=== PATIENT | female | born 1930 | race Hispanic/Latino ===

== ENCOUNTER 2017-03-07 12:28 | Emergency (ER) | payer MEDICARE ==
[2017-03-07 12:28] VITALS: BMI 24.7
--- NOTE | 2017-03-07 14:21 | C.PDOC ---
History Of Present Illness 87 year old female with history of CHF, HTN, DM, spinal issues, skin cancer, with pacemaker who complains of 4 day history of productive cough, chest congestion, wheezing, sore throat. Daughter reports that patient has been feeling more tired, falling asleep, disoriented, which is not typical for the patient. Patient reportedly improved when she ate and drank something on Tuesday. She has had similar symptoms in the past when she was found to be dehydrated and possibly had pneumonia. She was reportedly slightly febrile to 99.5 on Tuesday. Patient also states that she feels weak all over with overall decreased energy. She is able to move all her extremities and has been able to get to the bathroom with her walker. She received the flu shot and has had the pneumonia shot in the past. PMH: CHF, HTN, DM, spinal issues, skin cancer, bleeding ulcer PSH: mole removal, pacemaker social hx: no history of smoking, alcohol or drugs. lives at home with clark Fox who is there for 5-6 hours daily. Daughter comes by to visit her on the weekends. family hx: history of DM. Strong hx of [place] - two of her brothers at [place] at ages 45 and 50 Meds: Lasix, Metoprolol, Glipizide, Plavix, Loratidine, Amlodipine, Famotidine, Zolpidem, Atorvastatin, Oxycodone/Apap, Glucosamine chondroitin, Vit B12, Vit B6 , folic acid. Allergies: ASA, Cipro Time Seen by Provider: 03/07/17 13:23 Chief Complaint (Nursing): Weakness/Neurological Deficit Past Medical History Vital Signs: Last Vital Signs Temp 98.1 F 03/07/17 15:49 Pulse 60 03/07/17 14:15 Resp 22 03/07/17 14:15 BP 157/66 H 03/07/17 12:40 Pulse Ox 94 L 03/07/17 12:40 - Medical History PMH: Arthritis, Bronchitis, Diverticulitis, Gastritis, HTN, Hypercholesterolemia , Osteoporosis, Pneumonia (2011), Chronic Kidney Disease (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, but back to normal) Surgical History: Pacemaker - [facility] Procedures EXERCISE TREATMENT OF MUSCULOSK WHOLE USING ASSIST EQUIPMENT (02/06/15) GAIT TRAINING/AMBULAT TREATMENT USING ASSIST EQUIPMENT (02/06/15) HOME MANAGEMENT TREATMENT USING ASSIST EQUIPMENT (08/26/15) INITIAL INSERT TRANS LEADS INTO [employer] (10/22/13) INITIAL INSERTION OF DUAL-CHAMBER DEVICE (10/22/13) THERAPEUTIC EXERCISE TREATMENT OF MUSCULOSK LOW BACK/LE (08/26/15) Family History: States: Unknown Family Hx - Social History Hx Tobacco Use: No Hx Alcohol Use: No Hx Substance Use: No - Immunization History Hx Tetanus Toxoid Vaccination: No Hx Influenza Vaccination: Yes Hx Pneumococcal Vaccination: No Review Of Systems Constitutional: Positive for: Fever. Negative for: Chills ENT: Positive for: Throat Pain Cardiovascular: Negative for: Chest Pain, Palpitations Respiratory: Positive for: Cough, Wheezing Gastrointestinal: Positive for: Nausea. Negative for: Vomiting, Abdominal Pain , Diarrhea Genitourinary: Negative for: Dysuria, Frequency Neurological: Positive for: Weakness. Negative for: Numbness, Change in Speech Physical Exam - Physical Exam Appears: Non-toxic, No Acute Distress Skin: Normal Color Head: Atraumatic, Normacephalic Oral Mucosa: Moist Lips: Normal Appearing Teeth: Normal Dentition Chest: Symmetrical Cardiovascular: Rhythm Regular Respiratory: Decreased Breath Sounds (on right ), No Rhonchi, No Wheezing Gastrointestinal/Abdominal: Bowel Sounds, Soft, No Tenderness Rectal: Deferred Back: No CVA Tenderness Extremity: Normal ROM, No Tenderness, No Pedal Edema ED Course And Treatment - Laboratory Results Result Diagrams: 03/07/17 14:48 03/07/17 14:48 Medical Decision Making Medical Decision Making: Patient seen by Dr. Merchant in the ED. request patient be discharged. Patient with positive Nitrites. Will treat with Macrobid. Disposition Discussed With : Spencer Merchant Counseled Patient/Family Regarding: Studies Performed, Diagnosis, Need For Followup, Rx Given - Disposition Referrals: Spencer Merchant MD [Staff Provider] - Disposition: HOME/ ROUTINE Disposition Time: 17:04 Condition: STABLE Prescriptions: Nitrofurantoin Macrocrystals [Macrobid] 1 cap PO BID #14 cap Instructions: Urinary Tract Infection in Women (ED) Forms: [facility] (Persian), General Discharge Instructions - POA Present On Arrival: None - Clinical Impression Clinical Impression: UTI (urinary tract infection)
--- NOTE | 2017-03-07 14:28 | RAD ---
PROCEDURE: CHEST RADIOGRAPH, 1 VIEW HISTORY: SOB COMPARISON: 10/27/2015 FINDINGS: LUNGS: Clear. PLEURA: No pneumothorax or pleural fluid seen. CARDIOVASCULAR: Normal heart size. Permanent pacemaker. No congestive change. OSSEOUS STRUCTURES: Bilateral glenohumeral osteoarthritis VISUALIZED UPPER ABDOMEN: Normal. OTHER FINDINGS: None. IMPRESSION: No active disease.
[2017-03-07 15:02] LABS: BASO % 0.3 % (0.0-2.0); HEMOGLOBIN 12.4 g/dL (11.0-16.0); LYMPH # 2.2 K/uL (1.0-4.3); LYMPH % 38.4 % (20.0-40.0); MEAN CORPUSCULAR HEMOGLOBIN 32.1 pg (27.0-31.0); MEAN CORPUSCULAR HGB CONC 34.4 g/dL (33.0-37.0); MONO # 1.4 K/uL (0.0-0.8); MONO % 23.9 % (0.0-10.0); NEUT # 2.2 K/uL (1.8-7.0); NEUT % 37.4 % (50.0-75.0); NRBC % 0.1 % (0.0-2.0); RBC 3.86 Mil/uL (3.80-5.20); RED CELL DISTRIBUTION WIDTH 13.6 % (11.5-14.5); WHITE BLOOD COUNT 5.8 K/uL (4.8-10.8)
[2017-03-07 15:05] LABS: MEAN CELL VOLUME 93.5 fL (81.0-99.0); PLATELET COUNT 121 K/uL (130-400)
[2017-03-07 15:14] LABS: ALB/GLOB RATIO 1.1 (1.0-2.1); ALBUMIN 3.5 g/dL (3.5-5.0); ALT/SGPT 44 U/L (9-52); AST/SGOT 57 U/L (14-36); BLOOD UREA NITROGEN 19 mg/dL (7-17); CALCIUM 8.4 mg/dl (8.6-10.4); GFR AFRICAN-AMERICAN > 60; GFR NON-AFRICAN AMERICAN > 60
[2017-03-07 15:26] LABS: B-TYPE NATRIURETIC PEPTIDE 670 pg/mL (0-900)
[2017-03-07 15:52] LABS: BANDS 11 % (0-2); LYMPHOCYTE 29 % (20-40); MONOCYTE 14 % (0-10); NEUTROPHIL 46 % (50-75); PLATELET ESTIMATE NORMAL (NORMAL); TOTAL CELLS COUNTED 100
[2017-03-07 16:52] LABS: URINE BILIRUBIN NEGATIVE (NEGATIVE); URINE BLOOD MODERATE (NEGATIVE); URINE CLARITY Turbid (Clear); URINE COLOR STRAW (YELLOW); URINE GLUCOSE (UA) NEGATIVE (Normal)
[2017-03-07 16:53] LABS: URINE LEUKOCYTE ESTERASE MODERATE Leu/uL (Negative); URINE NITRATE POSITIVE (NEGATIVE); URINE PROTEIN 100 mg/dL (NEGATIVE); URINE UROBILINOGEN 0.2 mg/dL (0.2-1.0)
[2017-03-07 16:54] LABS: URINE BACTERIA MANY (<OCC)
[2017-03-07 16:55] LABS: SQUAMOUS EPITHIAL 20 /hpf (0-5)
[2017-03-07 18:20] VITALS: BP 154/65; PULSE 66; RESP 20; TEMP 97.9; O2SAT 96
== END 2017-03-07 18:17 | disposition home or self-care (01) ==
LOC: C.ER 12:28
DX: N39.0 Urinary tract infection, site not specified (principal); I50.9 Heart failure, unspecified; E78.00 Pure hypercholesterolemia, unspecified; I10 Essential (primary) hypertension; E11.9 Type 2 diabetes mellitus without complications

== ENCOUNTER 2017-03-11 11:35 | Inpatient (IN) | payer MEDICARE ==
[2017-03-11 11:36] VITALS: BMI 24.7
[2017-03-11] MEDS ORDERED: Sodium Chloride 0.9% 500 ML IV STA (12:20)
[2017-03-11] MEDS ORDERED: Sodium Chloride 0.9% 500 ML IV ONE (12:36)
[2017-03-11 12:40] LABS: VENOUS BLOOD GAS BASE EXCESS 4.7 mmol/L (0.0-2.0); VENOUS BLOOD GAS PCO2 42 mmHg (40-60); VENOUS BLOOD GAS PO2 36 mm/Hg (30-55); VENOUS BLOOD PH 7.45 (7.32-7.43)
[2017-03-11 12:50] LABS: LYMPH # 2.2 K/uL (1.0-4.3); LYMPH % 38.3 % (20.0-40.0); MEAN CORPUSCULAR HEMOGLOBIN 32.5 pg (27.0-31.0); NEUT # 2.6 K/uL (1.8-7.0); WHITE BLOOD COUNT 5.7 K/uL (4.8-10.8)
[2017-03-11 12:55] LABS: INR 1.1
[2017-03-11 12:59] LABS: ALB/GLOB RATIO 1.2 (1.0-2.1); ALBUMIN 3.8 g/dL (3.5-5.0); ALT/SGPT 33 U/L (9-52); AMYLASE 102 U/L (30-110); AST/SGOT 42 U/L (14-36); BLOOD UREA NITROGEN 11 mg/dL (7-17); CALCIUM 8.7 mg/dl (8.6-10.4); GFR AFRICAN-AMERICAN > 60; GFR NON-AFRICAN AMERICAN > 60; LIPASE 502 U/L (23-300); MAGNESIUM 1.8 mg/dL (1.6-2.3)
[2017-03-11 13:03] LABS: BASO % 0.3 % (0.0-2.0); EOS % 0.1 % (0.0-4.0); MEAN CORPUSCULAR HGB CONC 36.2 g/dL (33.0-37.0); MEAN PLATELET VOLUME 9.1 fL (7.2-11.7); MONO # 0.9 K/uL (0.0-0.8); MONO % 15.3 % (0.0-10.0); NRBC % 0.2 % (0.0-2.0); RBC 4.26 Mil/uL (3.80-5.20); RED CELL DISTRIBUTION WIDTH 13.3 % (11.5-14.5)
[2017-03-11 13:05] LABS: HEMOGLOBIN 13.9 g/dL (11.0-16.0)
[2017-03-11 13:06] LABS: MEAN CELL VOLUME 90.2 fL (81.0-99.0)
[2017-03-11 13:08] LABS: CK-MB 1.23 ng/mL (0.0-3.38)
[2017-03-11 13:19] LABS: URINE BILIRUBIN NEGATIVE (NEGATIVE); URINE BLOOD NEGATIVE (NEGATIVE); URINE CLARITY Clear (Clear); URINE COLOR Yellow (YELLOW); URINE GLUCOSE (UA) NORMAL (Normal); URINE LEUKOCYTE ESTERASE NEG Leu/uL (Negative); URINE NITRATE NEGATIVE (NEGATIVE); URINE PROTEIN 2+ mg/dL (NEGATIVE); URINE UROBILINOGEN NORMAL mg/dL (0.2-1.0)
--- NOTE | 2017-03-11 13:26 | C.PDOC ---
History Of Present Illness 87 year old female brought to ED by respiratory tech for evaluation of lethargy, confusion, decreased PO intake, and cough with yellow phlegm for the past 2 weeks. Escrow Processor notes that pt had multiple episodes of vomiting yesterday. Escrow Processor states that pt was recently seen here for UTI, and was discharged home with unknown antibiotics which pt has been taking without improvement. Notes that symptoms have worsened which prompted ED visit. Otherwise, denies diarrhea, or any other associated symptoms at this time. Chief Complaint (Nursing): Weakness/Neurological Deficit History Per: Family History/Exam Limitations: no limitations Onset/Duration Of Symptoms: Days Current Symptoms Are (Timing): Still Present Recent travel outside of the [place]: No Additional History Per: Family Past Medical History Reviewed: Historical Data, Nursing Documentation, Vital Signs Vital Signs: Last Vital Signs Temp 98.1 F 03/11/17 16:00 Pulse 60 03/11/17 16:00 Resp 18 03/11/17 16:00 BP 157/71 H 03/11/17 16:00 Pulse Ox 98 03/11/17 16:00 - Medical History PMH: Arthritis, Bronchitis, Diverticulitis, Gastritis, HTN, Hypercholesterolemia , Osteoporosis, Pneumonia (2011), Chronic Kidney Disease (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, but back to normal) Surgical History: Pacemaker - [facility] Procedures EXERCISE TREATMENT OF MUSCULOSK WHOLE USING ASSIST EQUIPMENT (02/06/15) GAIT TRAINING/AMBULAT TREATMENT USING ASSIST EQUIPMENT (02/06/15) HOME MANAGEMENT TREATMENT USING ASSIST EQUIPMENT (08/26/15) INITIAL INSERT TRANS LEADS INTO [employer]ENTRICLE (10/22/13) INITIAL INSERTION OF DUAL-CHAMBER DEVICE (10/22/13) THERAPEUTIC EXERCISE TREATMENT OF MUSCULOSK LOW BACK/LE (08/26/15) Family History: States: Unknown Family Hx - Social History Hx Tobacco Use: No Hx Alcohol Use: No Hx Substance Use: No - Immunization History Hx Tetanus Toxoid Vaccination: No Hx Influenza Vaccination: Yes Hx Pneumococcal Vaccination: No Review Of Systems Except As Marked, All Systems Reviewed And Found Negative. Constitutional: Positive for: Weakness Cardiovascular: Negative for: Chest Pain Respiratory: Positive for: Cough, Sputum Gastrointestinal: Positive for: Vomiting Physical Exam - Physical Exam Appears: Non-toxic, No Acute Distress Skin: Normal Color, Warm, Dry Head: Atraumatic, Normacephalic Eye(s): bilateral: Normal Inspection, EOMI Oral Mucosa: Moist Neck: Normal ROM, Supple Cardiovascular: Rhythm Regular, No Murmur Respiratory: No Accessory Muscle Use, No Rales, No Rhonchi, Wheezing ( bilaterally) Gastrointestinal/Abdominal: Soft, No Tenderness Extremity: Normal ROM, No Deformity Neurological/Psych: Oriented x3, Normal Speech ED Course And Treatment - Laboratory Results Result Diagrams: 03/11/17 12:40 03/11/17 12:40 O2 Sat by Pulse Oximetry: 93 - Other Rad CXR X-Ray: Viewed By Me, Read By Radiologist Interpretation: Accession No. : [id number]. Patient Name / ID : ALYSSA Harper / [id number]. Exam Date : 03/11/2017 13:27:17 ( Approved ). Study Comment : Sex / Age : F / [id number]. Creator : Steffanie Aden MD. Dictator : Steffanie Aden MD. Associate Professor Of English : Medical Art Therapist : Steffanie Aden MD. Approver2 : Report Date : 03/11/2017 14:59:45. My Comment : . HISTORY: cough/fever. COMPARISON: Comparison is made with 03/07/2017. FINDINGS: LUNGS : No significant interval change in the lungs noted since the previous exam. Small bibasilar atelectasis. PLEURA: No significant pleural effusion identified, no pneumothorax apparent. CARDIOVASCULAR: Left-sided pacemaker is again seen in place P. OSSEOUS STRUCTURES: No significant abnormalities. VISUALIZED UPPER ABDOMEN: Normal. OTHER FINDINGS: None. IMPRESSION: No significant interval change noted since the previous exam. Progress Note: Blood work, urinalysis, influenza AB, CXR ordered and reviewed. Pt was given IV fluids. Despite negative CXR report. LLL looks hazy and still suspecious for developing pneumonia. Patient found to have hypokalemia and hyponatremia that make is suspecious for atypical pneumonia. Rocephin and Zithro started. Case d/w who accepted case for an admission. Disposition - Disposition Disposition: HOSPITALIZED Disposition Time: 15:00 Condition: FAIR - Clinical Impression Clinical Impression: Hypokalemia, Hyponatremia, Pneumonia - PA / SEWER TAPPER / Resident Statement MD/DO has reviewed & agrees with the documentation as recorded. - Scribe Statement The provider has reviewed the documentation as recorded by the Scribe Haley Hollins All medical record entries made by the Scribe were at my direction and personally dictated by me. I have reviewed the chart and agree that the record accurately reflects my personal performance of the history, physical exam, medical decision making, and the department course for this patient. I have also personally directed, reviewed, and agree with the discharge instructions and disposition. Decision To Admit - Pt Status Changed To: Hospital Disposition Of: Inpatient - Admit Certification Admit to Inpatient:: After my assessment, the patient will require hospitalization for at least two midnights. This is because of the severity of symptoms shown, intensity of services needed, and/or the medical risk in this patient being treated as an outpatient. - InPatient: Physician Admission Certification: I certify that this patient requires 2 or more midnights of care for the following reason:: Patient will need more than 2 days of IV antibiotics. - . Bed Request Type: Regular Patient Diagnosis: Hypokalemia, Hyponatremia, Pneumonia
[2017-03-11] MEDS ORDERED: Potassium Chloride 20 mEq/15 ml LIQ UD PO STA (14:29)
[2017-03-11] MEDS ORDERED: Albuterol-Ipratrop 3 mg / 0.5 (3 ml) UD IH STA (14:59)
[2017-03-11] MEDS ORDERED: Azithromycin 500 MG in Sodium Chloride 0.9% 250 ML IVPB ONE (15:00)
--- NOTE | 2017-03-11 15:01 | RAD ---
HISTORY: cough/fever COMPARISON: Comparison is made with 03/07/2017 FINDINGS: LUNGS: No significant interval change in the lungs noted since the previous exam. Small bibasilar atelectasis. PLEURA: No significant pleural effusion identified, no pneumothorax apparent. CARDIOVASCULAR: Left-sided pacemaker is again seen in place P OSSEOUS STRUCTURES: No significant abnormalities. VISUALIZED UPPER ABDOMEN: Normal. OTHER FINDINGS: None. IMPRESSION: No significant interval change noted since the previous exam.
[2017-03-11] MEDS ORDERED: Potassium Chloride 20 mEq/15 ml LIQ UD ONE (15:08)
[2017-03-11] MEDS: Sodium Chloride 0.9% 1,000 ML IV SCH (15:44)
[2017-03-11] MEDS ORDERED: Albuterol-Ipratrop 3 mg / 0.5 (3 ml) UD ONE (15:46)
[2017-03-11] MEDS ORDERED: Sodium Chloride 0.9% 1,000 ML ONE (15:47)
[2017-03-11] MEDS: Enoxaparin 40 mg Syringe SC SCH (15:54)
[2017-03-11] MEDS: (Novolog) Insulin Aspart, Recombinant 100 u/ml 10 ml vial SC SCH ×2 (16:51→21:18)
[2017-03-11] MEDS: Oxycodone/Acetaminophen 5/325 mg Tab PO SCH (21:20)
[2017-03-11] MEDS ORDERED: Dextrose 50% SYRINGE Inj (50 ml) IV STA (22:00)
--- NOTE | 2017-03-11 23:34 | CP.PCM.HP ---
History of Present Illness - History of Present Illness History of Present Illness: 87 years old female brought to the ED by her manager video games because of increasing lethargy, nausea, vomiting since last night. She was seen at the ED 2 days ago for a productive cough and mild hyponatremia, was found to have an UTI and was discharged home on Macrobid. Today her serum Na+:121 K+: 3.0 Amylase: 102 and Lipase: 502. She is known to have a hypertension, a non-insulin dependent diabetes mellitus, a hyperlipidemia, severe osteoarthritis, a permanent pacemaker. Present on Admission - Present on Admission Any Indicators Present on Admission: No Review of Systems - Constitutional Constitutional: Anorexia, Lethargy, Weakness - Respiratory Respiratory: Cough, Chest Congestion - Gastrointestinal Gastrointestinal: Nausea, Vomiting Past Patient History - Infectious Disease Hx of Infectious Diseases: None - Tetanus Immunizations Tetanus Immunization: Unknown - Past Medical History & Family History Past Medical History?: Yes - Past Social History Smoking Status: Never Smoked Alcohol: None Drugs: Denies Home Situation {Lives}: Alone Domestic Violence: Negative - CARDIAC Hx Hypercholesterolemia: Yes Hx Hypertension: Yes Hx Pacemaker: Yes - PULMONARY Hx Bronchitis: Yes Hx Pneumonia: Yes (2011) - NEUROLOGICAL Hx Paralysis: No - HEENT Hx HEENT Problems: Yes Other/Comment: SCALP SURGERY FOR MALIGNANCY - RENAL Hx Chronic Kidney Disease: Yes (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, but back to normal) - ENDOCRINE/METABOLIC Hx Endocrine Disorders: Yes Hx Diabetes Mellitus Type 2: Yes - HEMATOLOGICAL/ONCOLOGICAL Hx Blood Transfusions: No Hx Blood Transfusion Reaction: No - INTEGUMENTARY Hx Dermatological Problems: Yes Hx Basil Cell: Yes ((?)) Other/Comment: top of head cancer - MUSCULOSKELETAL/RHEUMATOLOGICAL Hx Arthritis: Yes Hx Falls: Yes Hx Osteoporosis: Yes - GASTROINTESTINAL Hx Diverticulitis: Yes Hx Gastritis: Yes - GENITOURINARY/GYNECOLOGICAL Hx Genitourinary Disorders: Yes Hx Urinary Tract Infection: Yes - PSYCHIATRIC Hx Substance Use: No - SURGICAL HISTORY Hx Surgeries: Yes (Cataract extraction. 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.) Hx Cataract Extraction: Yes Hx Hysterectomy: Yes (PARTIAL) Other/Comment: BACK STIMULATOR, PACEMAKER - ANESTHESIA Hx Anesthesia Reactions: Yes Hx Malignant Hyperthermia: No Meds Allergies/Adverse Reactions: Allergies Allergy/AdvReac Type Severity Reaction Status Date / Time ciprofloxacin [From Cipro] Allergy Severe Verified 03/07/17 12:47 ciprofloxacin HCl Allergy Severe Verified 03/07/17 12:47 [From Cipro] Physical Exam - Constitutional Appears: Chronically Ill - Head Exam Head Exam: NORMAL INSPECTION - Eye Exam Eye Exam: Normal appearance - ENT Exam ENT Exam: Normal Exam - Neck Exam Neck exam: Positive for: Normal Inspection - Respiratory Exam Respiratory Exam: Rhonchi, Wheezes Additional comments: Some rhonchi bilaterally - Cardiovascular Exam Cardiovascular Exam: REGULAR RHYTHM, Systolic Murmur - GI/Abdominal Exam GI & Abdominal Exam: Normal Bowel Sounds, Soft - Rectal Exam Rectal Exam: Deferred - Extremities Exam Extremities exam: Positive for: normal inspection - Back Exam Back exam: NORMAL INSPECTION - Neurological Exam Neurological exam: Alert, Oriented x3 - Psychiatric Exam Psychiatric exam: Anxious - Skin Skin Exam: Dry, Intact, Normal Color, Warm Results - Vital Signs Recent Vital Signs: Last Vital Signs Temp 98.1 F 03/11/17 18:15 Pulse 60 03/11/17 18:15 Resp 20 03/11/17 18:15 BP 156/71 H 03/11/17 18:15 Pulse Ox 94 L 03/11/17 18:15 - Labs Result Diagrams: 03/11/17 12:40 03/11/17 12:40 Labs: Laboratory Results - last 24 hr 03/11/17 03/11/17 03/11/17 12:20 12:36 12:40 WBC 5.7 RBC 4.26 Hgb 13.9 Hct 38.6 MCV 90.2 D MCH 32.5 H MCHC 36.2 RDW 13.3 Plt Count 130 MPV 9.1 Neut % (Auto) 46.0 L Lymph % (Auto) 38.3 [place] % (Auto) 15.3 H Eos % (Auto) 0.1 Baso % (Auto) 0.3 Neut # (Auto) 2.6 Lymph # (Auto) 2.2 [place] # (Auto) 0.9 H Eos # (Auto) 0.0 Baso # (Auto) 0.0 PT INR APTT pO2 36 VBG pH 7.45 H VBG pCO2 42 VBG HCO3 27.9 VBG Total CO2 30.5 H VBG O2 Sat (Calc) 71.1 H VBG Base Excess 4.7 H VBG Potassium 3.1 L Sodium 123.0 L Chloride 89.0 L Glucose 112 H Lactate 1.4 Potassium Carbon Dioxide Anion Gap BUN Creatinine Est GFR ( Amer) Est GFR (Non-Af Amer) POC Glucose (mg/dL) Random Glucose Calcium Magnesium Total Bilirubin AST ALT Alkaline Phosphatase Total Creatine Kinase CK-MB (Mass) Troponin I Total Protein Albumin Globulin Albumin/Globulin Ratio Amylase Lipase Venous Blood Potassium 3.1 L Urine Color Urine Clarity Urine pH Ur Specific [place] Urine Protein Urine Glucose (UA) Urine Ketones Urine Blood Urine Nitrate Urine Bilirubin Urine Urobilinogen Ur Leukocyte Esterase Urine WBC (Auto) Urine RBC (Auto) Influenza Typ A,B (EIA) Negative for flu a/b 03/11/17 03/11/17 03/11/17 12:40 12:40 13:13 WBC RBC Hgb Hct MCV MCH MCHC RDW Plt Count MPV Neut % (Auto) Lymph % (Auto) [place] % (Auto) Eos % (Auto) Baso % (Auto) Neut # (Auto) Lymph # (Auto) [place] # (Auto) Eos # (Auto) Baso # (Auto) PT 12.0 INR 1.1 APTT 29 pO2 VBG pH VBG pCO2 VBG HCO3 VBG Total CO2 VBG O2 Sat (Calc) VBG Base Excess VBG Potassium Sodium 121 L Chloride 83 L Glucose Lactate Potassium 3.0 L Carbon Dioxide 27 Anion Gap 14 BUN 11 Creatinine 0.6 L Est GFR ( Amer) > 60 Est GFR (Non-Af Amer) > 60 POC Glucose (mg/dL) Random Glucose 106 H Calcium 8.7 Magnesium 1.8 Total Bilirubin 0.8 AST 42 H D ALT 33 Alkaline Phosphatase 88 Total Creatine Kinase 54 CK-MB (Mass) 1.23 Troponin I < 0.0120 Total Protein 7.1 Albumin 3.8 Globulin 3.3 Albumin/Globulin Ratio 1.2 Amylase 102 Lipase 502 H Venous Blood Potassium Urine Color Yellow Urine Clarity Clear Urine pH 7.0 Ur Specific [place] 1.008 Urine Protein 2+ H Urine Glucose (UA) Normal Urine Ketones Negative Urine Blood Negative Urine Nitrate Negative Urine Bilirubin Negative Urine Urobilinogen Normal Ur Leukocyte Esterase Neg Urine WBC (Auto) < 1 Urine RBC (Auto) < 1 Influenza Typ A,B (EIA) 03/11/17 03/11/17 03/11/17 16:47 21:46 21:48 WBC RBC Hgb Hct MCV MCH MCHC RDW Plt Count MPV Neut % (Auto) Lymph % (Auto) [place] % (Auto) Eos % (Auto) Baso % (Auto) Neut # (Auto) Lymph # (Auto) [place] # (Auto) Eos # (Auto) Baso # (Auto) PT INR APTT pO2 VBG pH VBG pCO2 VBG HCO3 VBG Total CO2 VBG O2 Sat (Calc) VBG Base Excess VBG Potassium Sodium Chloride Glucose Lactate Potassium Carbon Dioxide Anion Gap BUN Creatinine Est GFR ( Amer) Est GFR (Non-Af Amer) POC Glucose (mg/dL) 106 69 69 Random Glucose Calcium Magnesium Total Bilirubin AST ALT Alkaline Phosphatase Total Creatine Kinase CK-MB (Mass) Troponin I Total Protein Albumin Globulin Albumin/Globulin Ratio Amylase Lipase Venous Blood Potassium Urine Color Urine Clarity Urine pH Ur Specific [place] Urine Protein Urine Glucose (UA) Urine Ketones Urine Blood Urine Nitrate Urine Bilirubin Urine Urobilinogen Ur Leukocyte Esterase Urine WBC (Auto) Urine RBC (Auto) Influenza Typ A,B (EIA) 03/11/17 22:16 WBC RBC Hgb Hct MCV MCH MCHC RDW Plt Count MPV Neut % (Auto) Lymph % (Auto) [place] % (Auto) Eos % (Auto) Baso % (Auto) Neut # (Auto) Lymph # (Auto) [place] # (Auto) Eos # (Auto) Baso # (Auto) PT INR APTT pO2 VBG pH VBG pCO2 VBG HCO3 VBG Total CO2 VBG O2 Sat (Calc) VBG Base Excess VBG Potassium Sodium Chloride Glucose Lactate Potassium Carbon Dioxide Anion Gap BUN Creatinine Est GFR ( Amer) Est GFR (Non-Af Amer) POC Glucose (mg/dL) 216 H Random Glucose Calcium Magnesium Total Bilirubin AST ALT Alkaline Phosphatase Total Creatine Kinase CK-MB (Mass) Troponin I Total Protein Albumin Globulin Albumin/Globulin Ratio Amylase Lipase Venous Blood Potassium Urine Color Urine Clarity Urine pH Ur Specific [place] Urine Protein Urine Glucose (UA) Urine Ketones Urine Blood Urine Nitrate Urine Bilirubin Urine Urobilinogen Ur Leukocyte Esterase Urine WBC (Auto) Urine RBC (Auto) Influenza Typ A,B (EIA) Assessment & Plan (1) Hyponatremia Assessment and Plan: Probably from vomiting and dehydration. To continue IV NS. Status: Acute (2) Hypokalemia Assessment and Plan: Replace with KCl. Status: Acute (3) Acute bronchitis Status: Acute (4) Acute pancreatitis Assessment and Plan: Probably viral in origin. To order an abdominal US. Status: Acute Decision To Admit - Pt Status Changed To: Hospital Disposition Of: Inpatient - Admit Certification Admit to Inpatient:: After my assessment, the patient will require hospitalization for at least two midnights. This is because of the severity of symptoms shown, intensity of services needed, and/or the medical risk in this patient being treated as an outpatient. - InPatient: Physician Admission Certification:: After my assessments, the patient requires hospitalization for at least two midnights. - . Bed Request Type: Regular Admitting Physician: Spencer Merchant
[2017-03-12 01:16] LABS: URIC ACID 2.4 mg/dL (2.2-7.5)
[2017-03-12 02:39] LABS: OSMOLALITY,URINE 257 mosm/kg (300-1000)
[2017-03-12] MEDS: Enoxaparin 40 mg Syringe SC SCH ×2 (03:15→10:52)
[2017-03-12] MEDS: (Novolog) Insulin Aspart, Recombinant 100 u/ml 10 ml vial SC SCH ×4 (07:54→21:57)
[2017-03-12] MEDS: Sodium Chloride 0.9% 1,000 ML IV SCH (07:54)
[2017-03-12 08:52] LABS: ALB/GLOB RATIO 1.2 (1.0-2.1); ALBUMIN 3.5 g/dL (3.5-5.0); ALT/SGPT 35 U/L (9-52); AMYLASE 101 U/L (30-110); AST/SGOT 40 U/L (14-36); BLOOD UREA NITROGEN 10 mg/dL (7-17); CALCIUM 8.1 mg/dl (8.6-10.4); GFR AFRICAN-AMERICAN > 60; GFR NON-AFRICAN AMERICAN > 60; LIPASE 466 U/L (23-300)
[2017-03-12] MEDS ORDERED: Azithromycin 500 MG in Sodium Chloride 0.9% 250 ML IVPB SCH (10:00)
[2017-03-12] MEDS: GlipiZIDE 2.5 mg Tab PO SCH (10:53)
[2017-03-12 13:50] VITALS: RESP 20
--- NOTE | 2017-03-12 14:08 | CP.PCM.CON ---
History of Present Illness - History of Present Illness History of Present Illness: pt is seen and examined, full consult is dictated #[id number] 1. hyponatremia sec to hypotonic hypovolemic hyponatremia 2. hypoklaemia 3. URi/ acute bronchitis 4. HTN 6. t2 DM c/w ivf NS at 60-70 ml/hr will k dur 40 meq po x 1 now check bmp, mg in am Past Patient History - Infectious Disease Hx of Infectious Diseases: None - Tetanus Immunizations Tetanus Immunization: Unknown - Past Medical History & Family History Past Medical History?: Yes - Past Social History Smoking Status: Never Smoked Alcohol: None Drugs: Denies Home Situation {Lives}: Alone Domestic Violence: Negative - CARDIAC Hx Hypercholesterolemia: Yes Hx Hypertension: Yes Hx Pacemaker: Yes - PULMONARY Hx Bronchitis: Yes Hx Pneumonia: Yes (2011) - NEUROLOGICAL Hx Paralysis: No - HEENT Hx HEENT Problems: Yes Other/Comment: SCALP SURGERY FOR MALIGNANCY - RENAL Hx Chronic Kidney Disease: Yes (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, but back to normal) - ENDOCRINE/METABOLIC Hx Endocrine Disorders: Yes Hx Diabetes Mellitus Type 2: Yes - HEMATOLOGICAL/ONCOLOGICAL Hx Blood Transfusions: No Hx Blood Transfusion Reaction: No - INTEGUMENTARY Hx Dermatological Problems: Yes Hx Basil Cell: Yes ((?)) Other/Comment: top of head cancer - MUSCULOSKELETAL/RHEUMATOLOGICAL Hx Arthritis: Yes Hx Falls: Yes Hx Osteoporosis: Yes - GASTROINTESTINAL Hx Diverticulitis: Yes Hx Gastritis: Yes - GENITOURINARY/GYNECOLOGICAL Hx Genitourinary Disorders: Yes Hx Urinary Tract Infection: Yes - PSYCHIATRIC Hx Substance Use: No - SURGICAL HISTORY Hx Surgeries: Yes (Cataract extraction. 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.) Hx Cataract Extraction: Yes Hx Hysterectomy: Yes (PARTIAL) Other/Comment: BACK STIMULATOR, PACEMAKER - ANESTHESIA Hx Anesthesia Reactions: Yes Hx Malignant Hyperthermia: No Meds Allergies/Adverse Reactions: Allergies Allergy/AdvReac Type Severity Reaction Status Date / Time ciprofloxacin [From Cipro] Allergy Severe Verified 03/07/17 12:47 ciprofloxacin HCl Allergy Severe Verified 03/07/17 12:47 [From Cipro] - Medications Medications: Current Medications Amlodipine Besylate (Norvasc) 5 mg PO DAILY [facility] Last Admin: 03/12/17 10:53 Dose: 5 mg Azithromycin (Zithromax) 500 mg PO DAILY [facility] Clopidogrel Bisulfate (Plavix) 75 mg PO DAILY [facility] Last Admin: 03/12/17 10:53 Dose: 75 mg Enoxaparin Sodium (Lovenox) 40 mg SC DAILY [facility] Last Admin: 03/12/17 10:52 Dose: 40 mg Famotidine (Pepcid) 20 mg PO DAILY [facility] Last Admin: 03/12/17 10:53 Dose: 20 mg Glipizide (Glucotrol) 2.5 mg PO DAILY [facility] Last Admin: 03/12/17 10:53 Dose: 2.5 mg Sodium Chloride (Sodium Chloride 0.9%) 1,000 mls @ 60 mls/hr IV .[id number] [facility] Last Admin: 03/12/17 07:54 Dose: Not Given Insulin Aspart (Novolog) 0 unit SC [facility] ON LICENSE OF [facility] PRN Reason: Protocol Last Admin: 03/12/17 11:39 Dose: Not Given Metoprolol Tartrate (Lopressor) 50 mg PO BID [facility] Last Admin: 03/12/17 10:53 Dose: 50 mg Ondansetron HCl (Zofran Inj) 4 mg IVP Q4H PRN PRN Reason: Nausea/Vomiting Oxycodone/Acetaminophen (Percocet 5/325 Mg Tab) 0.5 tab PO [facility] Stop: 03/14/17 22:01 Last Admin: 03/11/17 21:20 Dose: Not Given Zolpidem Tartrate (Ambien) 5 mg PO [facility] Last Admin: 03/11/17 21:20 Dose: 5 mg Results - Vital Signs Recent Vital Signs: Last Vital Signs Temp 97.9 F 03/12/17 07:00 Pulse 60 03/12/17 07:00 Resp 20 03/12/17 07:00 BP 151/76 H 03/12/17 07:00 Pulse Ox 96 03/12/17 07:00 - Labs Result Diagrams: 03/11/17 12:40 03/12/17 08:26 Labs: Laboratory Results - last 24 hr 03/11/17 03/11/17 03/11/17 16:47 21:46 21:48 Sodium Potassium Chloride Carbon Dioxide Anion Gap BUN Creatinine Est GFR ( Amer) Est GFR (Non-Af Amer) POC Glucose (mg/dL) 106 69 69 Random Glucose Serum Osmolality Uric Acid Calcium Total Bilirubin AST ALT Alkaline Phosphatase Total Protein Albumin Globulin Albumin/Globulin Ratio Amylase Lipase TSH 3rd Generation Cortisol AM Sample Urine Osmolality Ur Random Sodium 03/11/17 03/12/17 03/12/17 22:16 00:58 00:58 Sodium Potassium Chloride Carbon Dioxide Anion Gap BUN Creatinine Est GFR ( Amer) Est GFR (Non-Af Amer) POC Glucose (mg/dL) 216 H Random Glucose Serum Osmolality 267 L Uric Acid 2.4 Calcium Total Bilirubin AST ALT Alkaline Phosphatase Total Protein Albumin Globulin Albumin/Globulin Ratio Amylase Lipase TSH 3rd Generation 0.78 Cortisol AM Sample Urine Osmolality Ur Random Sodium 03/12/17 03/12/17 03/12/17 02:35 07:18 08:26 Sodium 127 L Potassium 3.0 L Chloride 91 L Carbon Dioxide 26 Anion Gap 13 BUN 10 Creatinine 0.5 L Est GFR ( Amer) > 60 Est GFR (Non-Af Amer) > 60 POC Glucose (mg/dL) 120 H Random Glucose 121 H Serum Osmolality Uric Acid Calcium 8.1 L Total Bilirubin 0.7 AST 40 H ALT 35 Alkaline Phosphatase 84 Total Protein 6.6 Albumin 3.5 Globulin 3.1 Albumin/Globulin Ratio 1.2 Amylase 101 Lipase 466 H TSH 3rd Generation Cortisol AM Sample Urine Osmolality 257 L Ur Random Sodium 62 03/12/17 08:26 Sodium Potassium Chloride Carbon Dioxide Anion Gap BUN Creatinine Est GFR ( Amer) Est GFR (Non-Af Amer) POC Glucose (mg/dL) Random Glucose Serum Osmolality Uric Acid Calcium Total Bilirubin AST ALT Alkaline Phosphatase Total Protein Albumin Globulin Albumin/Globulin Ratio Amylase Lipase TSH 3rd Generation Cortisol AM Sample 20.6 Urine Osmolality Ur Random Sodium
[2017-03-12] MEDS ORDERED: Potassium Chloride 20 mEq ER Tab PO STA (14:29)
--- NOTE | 2017-03-12 15:21 | US ---
HISTORY: Pancreatitis COMPARISON: Comparison made with CT scan of the abdomen and pelvis dated 11/29/2016 TECHNIQUE: Sonographic evaluation of the abdomen. FINDINGS: LIVER: Liver measures approximately 11.2 cm. Liver demonstrates smooth contour however increased -heterogeneous echogenicity suggesting fatty infiltration although other infiltrative hepatocellular disease process not excluded. . No mass. No intrahepatic bile duct dilatation. GALLBLADDER: No evidence of intraluminal gallbladder calculi. No pericholecystic fluid collections or sonographic Tate sign. COMMON BILE DUCT: CBD measures approximately 2.5 mm. No stones. No dilatation. PANCREAS: Pancreas is not visualized on this exam. RIGHT KIDNEY: Measures approximately 9.9 x 4.7 x 4.3cm. Slight increased echogenicity. No calculus, mass, or hydronephrosis. LEFT KIDNEY: Measures approximate 7.9 x 4.3 x 3.9cm. Slight increased echogenicity. No calculus, mass, or hydronephrosis. SPLEEN: Normal in size and contour. No mass. AORTA: No aneurysmal dilatation. IVC: Not visualized OTHER FINDINGS: None. IMPRESSION: Limited study due to large body habitus and bowel gas. Pancreas is not visualized on this exam. The liver is increased heterogeneous echotexture ; rule out fatty infiltration however other infiltrative hepatocellular disease process not excluded. Kidneys are also somewhat echogenic which could be secondary to large body habitus however ; correlation with renal function tests recommended to exclude underlying mild medical renal disease. .
--- NOTE | 2017-03-12 17:57 | CP.PCM.PN ---
Subjective - Date & Time of Evaluation Date of Evaluation: 03/12/17 Time of Evaluation: 17:55 - Subjective Subjective: Patient has no no abdominal pain, no nausea, but appetite remains poor, and she is still coughing. Serum lipase decreases a little, and her abdiminal US is unremarkable. She received K-Dur ordered by Dr Ha. To continue IVF Objective - Vital Signs/Intake and Output Vital Signs (last 24 hours): Temp Pulse Resp BP Pulse Ox 97.6 F 60 20 181/71 H 98 03/12/17 16:46 03/12/17 16:46 03/12/17 16:46 03/12/17 16:46 03/12/17 16:46 Intake and Output: 03/12/17 03/12/17 06:59 18:59 Intake Total 480 820 Balance 480 820 - Medications Medications: Current Medications Amlodipine Besylate (Norvasc) 5 mg PO DAILY [facility] Last Admin: 03/12/17 10:53 Dose: 5 mg Azithromycin (Zithromax) 500 mg PO DAILY [facility] Clopidogrel Bisulfate (Plavix) 75 mg PO DAILY [facility] Last Admin: 03/12/17 10:53 Dose: 75 mg Enoxaparin Sodium (Lovenox) 40 mg SC DAILY [facility] Last Admin: 03/12/17 10:52 Dose: 40 mg Famotidine (Pepcid) 20 mg PO DAILY [facility] Last Admin: 03/12/17 10:53 Dose: 20 mg Glipizide (Glucotrol) 2.5 mg PO DAILY [facility] Last Admin: 03/12/17 10:53 Dose: 2.5 mg Sodium Chloride (Sodium Chloride 0.9%) 1,000 mls @ 60 mls/hr IV .[id number] [facility] Last Admin: 03/12/17 07:54 Dose: Not Given Insulin Aspart (Novolog) 0 unit SC ACHS [facility] PRN Reason: Protocol Last Admin: 03/12/17 16:50 Dose: Not Given Metoprolol Tartrate (Lopressor) 50 mg PO BID [facility] Last Admin: 03/12/17 17:51 Dose: 50 mg Ondansetron HCl (Zofran Inj) 4 mg IVP Q4H PRN PRN Reason: Nausea/Vomiting Oxycodone/Acetaminophen (Percocet 5/325 Mg Tab) 0.5 tab PO [facility] Stop: 03/14/17 22:01 Last Admin: 03/11/17 21:20 Dose: Not Given Zolpidem Tartrate (Ambien) 5 mg PO [facility] Last Admin: 03/11/17 21:20 Dose: 5 mg - Labs Labs: 03/11/17 12:40 03/12/17 08:26 PT 12.0 SECONDS (9.7-12.2) 03/11/17 12:40 INR 1.1 03/11/17 12:40 APTT 29 SECONDS (21-34) 03/11/17 12:40 - Constitutional Appears: No Acute Distress, Chronically Ill - Head Exam Head Exam: NORMAL INSPECTION - Eye Exam Eye Exam: Normal appearance - ENT Exam ENT Exam: Normal Exam - Neck Exam Neck Exam: Normal Inspection - Respiratory Exam Respiratory Exam: Rhonchi Additional comments: Few rhonchi bibasilarly. - Cardiovascular Exam Cardiovascular Exam: REGULAR RHYTHM, Murmur - GI/Abdominal Exam GI & Abdominal Exam: Soft, Normal Bowel Sounds - Rectal Exam Rectal Exam: Deferred - Extremities Exam Extremities Exam: Normal Inspection - Back Exam Back Exam: NORMAL INSPECTION - Neurological Exam Neurological Exam: Alert, Awake, Oriented x3 - Psychiatric Exam Psychiatric exam: Anxious - Skin Skin Exam: Dry, Intact, Normal Color, Warm Assessment and Plan (1) Hyponatremia Assessment & Plan: Serum N+: 129. To continue IV NS. Status: Acute (2) Hypokalemia Assessment & Plan: Replace with K-Dur. Status: Acute (3) Acute bronchitis Status: Acute (4) Acute pancreatitis Assessment & Plan: Since the patient has no abdominal pain, no nausea, vomiting, will keep same diet. Status: Acute
[2017-03-12] MEDS: Oxycodone/Acetaminophen 5/325 mg Tab PO SCH (21:57)
--- NOTE | 2017-03-13 00:08 | CON ---
RENAL CONSULTATION DATE: 03/12/2017 LOCATION: Patient is located in room 368, bed A. REQUESTING PHYSICIAN: Spencer Merchant MD. REASON FOR CONSULTATION: Hyponatremia, hypokalemia, electrolyte imbalance. HISTORY OF PRESENT ILLNESS: Ms. Yang is an 87-year-old very pleasant elderly female with past medical history significant for hypertension, diabetes, hyperlipidemia, chronic kidney disease, basal cell carcinoma of the skin, who was admitted with chief complaints of increasing lethargy, nausea, vomiting 1 day before the night of admission. Patient was in the Emergency Room 2 days prior to this admission for cough associated with yellow sputum and also found to have a UTI, was discharged home on Macrobid and also hyponatremia. Patient was admitted on 03/11/2017 with serum sodium 121, potassium is 3.0, amylase 102, lipase 502. Now, renal consult is requested for evaluation of the hyponatremia. Patient is feeling slightly better today. Denies any chest pain or palpitations. Denies any fever. Patient does complain of cough associated with yellow sputum since last week Tuesday. Now, the sputum is turning into white now. Patient is on IV antibiotics. Patient is not in acute distress. Still coughing. PAST MEDICAL HISTORY: Significant for longstanding hypertension, type 2 diabetes, hyperlipidemia, severe osteoarthritis, and status post pacemaker. PAST SURGICAL HISTORY: Status post pacemaker and also status post partial hysterectomy longtime ago. ALLERGIES: ALLERGIC TO CIPRO. SOCIAL HISTORY: The patient denies any smoking, alcohol, or drugs. Patient has 5 children. She lives alone. FAMILY HISTORY: Not significant. CURRENT MEDICATIONS: Include as follows; Ambien 5 mg at bedtime, glipizide 2.5 mg p.o. daily, metoprolol 50 mg p.o. b.i.d., Lovenox 40 mg subcu daily, amlodipine 5 mg p.o. daily, Pepcid 20 mg p.o. daily, Percocet half a tablet p.o. q.a.m. and bedtime, Plavix 75 mg daily, IV fluids normal saline at 60 mL per hour, azithromycin 500 mg p.o. daily, and Zofran 4 mg IV q.4 hours. REVIEW OF SYSTEMS: Significant for nausea, vomiting, and also cough associated with yellow sputum and significant for hypokalemia and hyponatremia. All other review systems are reviewed and are negative, and also complaining of weakness. PHYSICAL EXAMINATION: VITAL SIGNS: As follows, blood pressure 151/76, pulse 60, respirations 20, temperature 97.9, and saturation 96%. Height 5 feet 3 inches and weight is 140 pounds, BMI 24.8. GENERAL: Ms. Yang is an 87-year-old very pleasant elderly female, moderately built, moderately nourished, not in acute distress. HEENT: Pupils normal and reactive to light and accommodation. Conjunctivae pink. Sclerae anicteric. Patient has a scar on the head from the skin cancer from the previous surgery. NECK: Supple. No thyroid enlargement. Trachea is midline. LUNGS: Symmetric on both sides. Normal for palpation and percussion and bilateral breath sounds present. Clear to auscultation. CARDIOVASCULAR SYSTEM: [place] at the fifth intercostal space, midclavicular line. S1 and S2 audible. No murmur or gallop. ABDOMEN: Normal in appearance, soft, tympanic. No guarding. No rigidity. Patient has a ecchymosis, this came on right lower quadrant. No abdominal bruits. CENTRAL NERVOUS SYSTEM: Patient is alert, awake, oriented x3 except slightly hard in hearing. Cranial nerves II through XII grossly intact. Sensory and motor system is within normal limits. EXTREMITIES: No cyanosis. No clubbing. No edema. LABORATORY DATA: Her laboratory data included as follows; as of 03/11/2017, WBC 5.7, hemoglobin 13.9, hematocrit is 38.6, platelets 130. PT is 12, PTT 29, INR 1.1. VBG; pH 7.45, pCO2 36, pO2 42, and bicarb is 27.9, and saturation is 71.1. Lactic acid is 1.4. Sodium is 121, potassium is 3, chloride 83, CO2 27, BUN 11, creatinine 0.6, glucose 106, calcium 8.7, magnesium 1.8, total bili 0.8, AST 42, ALT 33, alkaline phosphatase 88. CPK is 54. CK-MB 1.23, troponin 0.012. Total protein 7.1, albumin is 3.8, amylase 102 and lipase is 502. Urinalysis; yellow clear, pH 7, specific gravity 1.008, protein 2+, glucose normal, ketones negative, blood negative, nitrites negative, bilirubin negative, urobilinogen normal, leukocyte esterase negative, rbc less than 1, wbc less than 1. Other laboratory data as follows, serum osmolality is 267, serum uric acid is 2.4. TSH is 0.78. Urine osmolality is 257 and urine sodium is 62 and IV fluids normal saline at 60-70 mL per hour. Serum cortisol level is 20.6. Chest x-ray as of 03/11/2017, no significant interval change in the lungs noted since the previous exam. Small bibasilar atelectasis. Left-sided pacemaker is again seen in place. IN SUMMARY: Ms. Babita Yang is an 87-year-old elderly female with history of longstanding hypertension, type 2 diabetes, hyperlipidemia, osteoarthritis, status post pacemaker, was admitted with cough associated with yellow sputum, and nausea, vomiting the day before the admission and cough associated with yellow sputum for 4 or 5 days with low serum sodium and low potassium. 1. Hyponatremia most likely secondary to hypotonic hypovolemic hyponatremia, etiology is not clear, rule out diuretic use. Plan: Continue IV fluids normal saline at 70 to 80 mL per hour and serum sodium is nicely improving with IV hydration from 121 on admission. 2. Hypokalemia. Patient was given potassium supplement last night, but still the potassium is low. We will give another supplement K-Dur 40 mEq p.o. x1 dose. 3. Rule out urinary tract infection. Continue antibiotics as per ____. Repeat BMP and magnesium level in the a.m. We will follow with you. Thank you for allowing me to participate in your patient's care. Nicki Ha MD
[2017-03-13] MEDS: (Novolog) Insulin Aspart, Recombinant 100 u/ml 10 ml vial SC SCH ×4 (08:05→22:12)
[2017-03-13 09:22] LABS: ALB/GLOB RATIO 1.1 (1.0-2.1); ALBUMIN 3.3 g/dL (3.5-5.0); ALT/SGPT 40 U/L (9-52); AMYLASE 110 U/L (30-110); AST/SGOT 42 U/L (14-36); BLOOD UREA NITROGEN 7 mg/dL (7-17); CALCIUM 8.2 mg/dl (8.6-10.4); GFR AFRICAN-AMERICAN > 60; GFR NON-AFRICAN AMERICAN > 60; LIPASE 472 U/L (23-300)
[2017-03-13] MEDS: GlipiZIDE 2.5 mg Tab PO SCH (10:11)
[2017-03-13] MEDS: Enoxaparin 40 mg Syringe SC SCH (10:20)
[2017-03-13] MEDS: Sodium Chloride 0.9% 1,000 ML IV SCH ×2 (10:20→17:41)
--- NOTE | 2017-03-13 18:10 | CP.PCM.PN ---
Subjective - Date & Time of Evaluation Date of Evaluation: 03/13/17 Time of Evaluation: 18:07 - Subjective Subjective: Patient feels weak with cery poor appetite. Afebrile, in no respiratory distress. Serum Na+: 127 K+: 3.4 Lipase 471. Was hypoglycemic this AM. Objective - Vital Signs/Intake and Output Vital Signs (last 24 hours): Temp Pulse Resp BP Pulse Ox 98.6 F 60 20 160/62 H 97 03/13/17 14:00 03/13/17 14:00 03/13/17 14:00 03/13/17 14:00 03/13/17 14:00 Intake and Output: 03/13/17 03/13/17 06:59 18:59 Intake Total 780 Balance 780 - Medications Medications: Current Medications Amlodipine Besylate (Norvasc) 5 mg PO DAILY [facility] Last Admin: 03/13/17 10:19 Dose: 5 mg Azithromycin (Zithromax) 500 mg PO DAILY [facility] Last Admin: 03/13/17 10:19 Dose: 500 mg Clopidogrel Bisulfate (Plavix) 75 mg PO DAILY [facility] Last Admin: 03/13/17 10:19 Dose: 75 mg Enoxaparin Sodium (Lovenox) 40 mg SC DAILY [facility] Last Admin: 03/13/17 10:20 Dose: 40 mg Famotidine (Pepcid) 20 mg PO DAILY [facility] Last Admin: 03/13/17 10:19 Dose: 20 mg Glipizide (Glucotrol) 2.5 mg PO DAILY [facility] Last Admin: 03/13/17 10:11 Dose: Not Given Sodium Chloride (Sodium Chloride 0.9%) 1,000 mls @ 60 mls/hr IV .[id number] [facility] Last Admin: 03/13/17 17:41 Dose: Not Given Insulin Aspart (Novolog) 0 unit SC ACHS [facility] PRN Reason: Protocol Last Admin: 03/13/17 16:55 Dose: Not Given Metoprolol Tartrate (Lopressor) 50 mg PO BID [facility] Last Admin: 03/13/17 17:39 Dose: 50 mg Ondansetron HCl (Zofran Inj) 4 mg IVP Q4H PRN PRN Reason: Nausea/Vomiting Oxycodone/Acetaminophen (Percocet 5/325 Mg Tab) 0.5 tab PO [facility] Stop: 03/14/17 22:01 Last Admin: 03/12/17 21:57 Dose: Not Given Zolpidem Tartrate (Ambien) 5 mg PO HS [facility] Last Admin: 03/12/17 21:57 Dose: Not Given - Labs Labs: 03/11/17 12:40 03/13/17 08:38 PT 12.0 SECONDS (9.7-12.2) 03/11/17 12:40 INR 1.1 03/11/17 12:40 APTT 29 SECONDS (21-34) 03/11/17 12:40 - Constitutional Appears: No Acute Distress, Chronically Ill - Head Exam Head Exam: NORMAL INSPECTION - Eye Exam Eye Exam: Normal appearance - ENT Exam ENT Exam: Normal Exam - Neck Exam Neck Exam: Normal Inspection - Respiratory Exam Respiratory Exam: Rhonchi Additional comments: Few rhonchi bilaterally. - Cardiovascular Exam Cardiovascular Exam: REGULAR RHYTHM, Murmur - GI/Abdominal Exam GI & Abdominal Exam: Soft, Normal Bowel Sounds - Extremities Exam Extremities Exam: Normal Inspection - Back Exam Back Exam: NORMAL INSPECTION - Neurological Exam Neurological Exam: Alert, Awake, Oriented x3 - Psychiatric Exam Psychiatric exam: Anxious - Skin Skin Exam: Dry, Intact, Normal Color, Warm Assessment and Plan (1) Hyponatremia Status: Acute (2) Hypokalemia Status: Acute (3) Acute bronchitis Status: Acute (4) Acute pancreatitis Status: Acute
[2017-03-13] MEDS ORDERED: Potassium Chloride 20 mEq ER Tab PO ONE (18:15)
[2017-03-13] MEDS: Oxycodone/Acetaminophen 5/325 mg Tab PO SCH (22:12)
[2017-03-14] MEDS: Sodium Chloride 0.9% 1,000 ML IV SCH ×2 (01:42→22:18)
[2017-03-14] MEDS: (Novolog) Insulin Aspart, Recombinant 100 u/ml 10 ml vial SC SCH ×4 (08:00→21:36)
[2017-03-14 08:12] LABS: ALB/GLOB RATIO 1.1 (1.0-2.1); ALBUMIN 3.2 g/dL (3.5-5.0); ALT/SGPT 42 U/L (9-52); AST/SGOT 40 U/L (14-36); BLOOD UREA NITROGEN 7 mg/dL (7-17); CALCIUM 8.4 mg/dl (8.6-10.4); GFR AFRICAN-AMERICAN > 60; GFR NON-AFRICAN AMERICAN > 60; LIPASE 409 U/L (23-300)
[2017-03-14] MEDS: Enoxaparin 40 mg Syringe SC SCH (10:33)
--- NOTE | 2017-03-14 12:30 | CP.PCM.PN ---
Subjective - Date & Time of Evaluation Date of Evaluation: 03/14/17 Time of Evaluation: 12:29 - Subjective Subjective: pt is seen and examined, follow up consult is dictated#[id number] Objective - Vital Signs/Intake and Output Vital Signs (last 24 hours): Temp Pulse Resp BP Pulse Ox 98.2 F 60 20 160/67 H 97 03/14/17 09:01 03/14/17 09:01 03/14/17 09:01 03/14/17 09:01 03/14/17 09:01 Intake and Output: 03/14/17 03/14/17 06:59 18:59 Intake Total 780 Balance 780 - Medications Medications: Current Medications Amlodipine Besylate (Norvasc) 5 mg PO DAILY [facility] Last Admin: 03/14/17 10:34 Dose: 5 mg Azithromycin (Zithromax) 500 mg PO DAILY [facility] Last Admin: 03/14/17 10:35 Dose: 500 mg Clopidogrel Bisulfate (Plavix) 75 mg PO DAILY [facility] Last Admin: 03/14/17 10:34 Dose: 75 mg Enoxaparin Sodium (Lovenox) 40 mg SC DAILY [facility] Last Admin: 03/14/17 10:33 Dose: 40 mg Famotidine (Pepcid) 20 mg PO DAILY [facility] Last Admin: 03/14/17 10:34 Dose: 20 mg Sodium Chloride (Sodium Chloride 0.9%) 1,000 mls @ 60 mls/hr IV .[id number] [facility] Last Admin: 03/14/17 01:42 Dose: 60 mls/hr Insulin Aspart (Novolog) 0 unit SC ACHS [facility] PRN Reason: Protocol Last Admin: 03/14/17 11:45 Dose: 1 unit Metoprolol Tartrate (Lopressor) 50 mg PO BID [facility] Last Admin: 03/14/17 10:33 Dose: 50 mg Ondansetron HCl (Zofran Inj) 4 mg IVP Q4H PRN PRN Reason: Nausea/Vomiting Oxycodone/Acetaminophen (Percocet 5/325 Mg Tab) 0.5 tab PO [facility] Stop: 03/14/17 22:01 Last Admin: 03/13/17 22:12 Dose: Not Given Zolpidem Tartrate (Ambien) 5 mg PO [facility] Last Admin: 03/13/17 22:15 Dose: Not Given - Labs Labs: 03/11/17 12:40 03/14/17 07:44 PT 12.0 SECONDS (9.7-12.2) 03/11/17 12:40 INR 1.1 03/11/17 12:40 APTT 29 SECONDS (21-34) 03/11/17 12:40
--- NOTE | 2017-03-14 17:02 | CP.PCM.PN ---
Subjective - Date & Time of Evaluation Date of Evaluation: 03/14/17 Time of Evaluation: 15:45 - Subjective Subjective: Patient still with cough, weakness and poor appetite. Objective - Vital Signs/Intake and Output Vital Signs (last 24 hours): Temp Pulse Resp BP Pulse Ox 97.4 F L 60 20 147/71 93 L 03/14/17 15:51 03/14/17 15:51 03/14/17 15:51 03/14/17 15:51 03/14/17 15:51 Intake and Output: 03/14/17 03/14/17 06:59 18:59 Intake Total 780 1080 Balance 780 1080 - Medications Medications: Current Medications Amlodipine Besylate (Norvasc) 5 mg PO DAILY [facility] Last Admin: 03/14/17 10:34 Dose: 5 mg Azithromycin (Zithromax) 500 mg PO DAILY [facility] Last Admin: 03/14/17 10:35 Dose: 500 mg Clopidogrel Bisulfate (Plavix) 75 mg PO DAILY [facility] Last Admin: 03/14/17 10:34 Dose: 75 mg Enoxaparin Sodium (Lovenox) 40 mg SC DAILY [facility] Last Admin: 03/14/17 10:33 Dose: 40 mg Famotidine (Pepcid) 20 mg PO DAILY [facility] Last Admin: 03/14/17 10:34 Dose: 20 mg Sodium Chloride (Sodium Chloride 0.9%) 1,000 mls @ 60 mls/hr IV .[id number] [facility] Last Admin: 03/14/17 01:42 Dose: 60 mls/hr Insulin Aspart (Novolog) 0 unit SC ACHS [facility] PRN Reason: Protocol Last Admin: 03/14/17 11:45 Dose: 1 unit Metoprolol Tartrate (Lopressor) 50 mg PO BID [facility] Last Admin: 03/14/17 10:33 Dose: 50 mg Ondansetron HCl (Zofran Inj) 4 mg IVP Q4H PRN PRN Reason: Nausea/Vomiting Oxycodone/Acetaminophen (Percocet 5/325 Mg Tab) 0.5 tab PO [facility] Stop: 03/14/17 22:01 Last Admin: 03/13/17 22:12 Dose: Not Given Zolpidem Tartrate (Ambien) 5 mg PO [facility] Last Admin: 03/13/17 22:15 Dose: Not Given - Labs Labs: 03/11/17 12:40 03/14/17 07:44 PT 12.0 SECONDS (9.7-12.2) 03/11/17 12:40 INR 1.1 03/11/17 12:40 APTT 29 SECONDS (21-34) 03/11/17 12:40 - Constitutional Appears: No Acute Distress, Chronically Ill - Head Exam Head Exam: NORMAL INSPECTION - Eye Exam Eye Exam: Normal appearance - ENT Exam ENT Exam: Normal Exam - Neck Exam Neck Exam: Normal Inspection - Respiratory Exam Respiratory Exam: Rhonchi Additional comments: Rhonchi bilaterally. - GI/Abdominal Exam GI & Abdominal Exam: Soft, Normal Bowel Sounds - Rectal Exam Rectal Exam: Deferred - Extremities Exam Extremities Exam: Full ROM, Normal Capillary Refill, Normal Inspection - Back Exam Back Exam: NORMAL INSPECTION - Neurological Exam Neurological Exam: Alert, Awake, Oriented x3 - Psychiatric Exam Psychiatric exam: Anxious - Skin Skin Exam: Dry, Intact, Normal Color, Warm Assessment and Plan (1) Hyponatremia Status: Acute (2) Hypokalemia Status: Acute (3) Acute bronchitis Status: Acute (4) Acute pancreatitis Status: Acute
[2017-03-14] MEDS: Oxycodone/Acetaminophen 5/325 mg Tab PO SCH (21:25)
[2017-03-15 07:40] LABS: MEAN CELL VOLUME 91.5 fL (81.0-99.0); MEAN CORPUSCULAR HEMOGLOBIN 32.6 pg (27.0-31.0); MEAN CORPUSCULAR HGB CONC 35.6 g/dL (33.0-37.0); MEAN PLATELET VOLUME 8.7 fL (7.2-11.7); RBC 3.69 Mil/uL (3.80-5.20); RED CELL DISTRIBUTION WIDTH 13.1 % (11.5-14.5); WHITE BLOOD COUNT 6.8 K/uL (4.8-10.8)
[2017-03-15 07:57] LABS: BLOOD UREA NITROGEN 9 mg/dL (7-17); CALCIUM 8.4 mg/dl (8.6-10.4); GFR AFRICAN-AMERICAN > 60; GFR NON-AFRICAN AMERICAN > 60
[2017-03-15 09:11] LABS: LIPASE 379 U/L (23-300)
[2017-03-15] MEDS: (Novolog) Insulin Aspart, Recombinant 100 u/ml 10 ml vial SC SCH ×4 (09:19→21:44)
[2017-03-15] MEDS: Enoxaparin 40 mg Syringe SC SCH (09:19)
--- NOTE | 2017-03-15 09:22 | RAD ---
Chest x-ray two views History: Pneumonia. Comparison: 09/08/2017 Findings: Mild venous congestion. Right paratracheal prominence. Tortuous ectatic aorta. Calcification at the aortic knob. Left-sided pacemaker. Cardiomegaly. Degenerative changes in the spine and shoulders. Impression: Mild venous congestion. Right paratracheal prominence. Tortuous ectatic aorta. Calcification at the aortic knob. Left-sided pacemaker. Cardiomegaly.
[2017-03-15] MEDS ORDERED: Sodium Chloride 0.9% 1,000 ML IV SCH (09:35)
[2017-03-15] MEDS ORDERED: Potassium Chloride 20 mEq ER Tab PO STA (09:36)
--- NOTE | 2017-03-15 09:38 | CP.PCM.PN ---
Subjective - Date & Time of Evaluation Date of Evaluation: 03/15/17 Time of Evaluation: 09:37 - Subjective Subjective: pt is seen and examined, follow up consult is dictated #[id number] Objective - Vital Signs/Intake and Output Vital Signs (last 24 hours): Temp Pulse Resp BP Pulse Ox 98.3 F 62 20 148/81 98 03/15/17 07:37 03/15/17 07:37 03/15/17 07:37 03/15/17 07:37 03/15/17 07:37 Intake and Output: 03/15/17 03/15/17 06:59 18:59 Intake Total 1080 Balance 1080 - Medications Medications: Current Medications Amlodipine Besylate (Norvasc) 5 mg PO DAILY [facility] Last Admin: 03/15/17 09:21 Dose: 5 mg Azithromycin (Zithromax) 500 mg PO DAILY [facility] Last Admin: 03/15/17 09:23 Dose: 500 mg Clopidogrel Bisulfate (Plavix) 75 mg PO DAILY [facility] Last Admin: 03/15/17 09:22 Dose: 75 mg Enoxaparin Sodium (Lovenox) 40 mg SC DAILY [facility] Last Admin: 03/15/17 09:19 Dose: 40 mg Famotidine (Pepcid) 20 mg PO DAILY [facility] Last Admin: 03/15/17 09:22 Dose: 20 mg Sodium Chloride (Sodium Chloride 0.9%) 1,000 mls @ 80 mls/hr IV .[id number] [facility] Insulin Aspart (Novolog) 0 unit SC ACHS [facility] PRN Reason: Protocol Last Admin: 03/15/17 09:19 Dose: Not Given Metoprolol Tartrate (Lopressor) 50 mg PO BID [facility] Last Admin: 03/15/17 09:19 Dose: 50 mg Ondansetron HCl (Zofran Inj) 4 mg IVP Q4H PRN PRN Reason: Nausea/Vomiting Potassium Chloride (K-Dur 20 Meq Er Tab) 40 meq PO STAT [facility] Stop: 03/15/17 09:37 Zolpidem Tartrate (Ambien) 5 mg PO HS [facility] Last Admin: 03/14/17 21:24 Dose: 5 mg - Labs Labs: 03/15/17 07:27 03/15/17 07:27 PT 12.0 SECONDS (9.7-12.2) 03/11/17 12:40 INR 1.1 03/11/17 12:40 APTT 29 SECONDS (21-34) 03/11/17 12:40
--- NOTE | 2017-03-15 09:55 | PN ---
DATE: 03/14/2017 FOLLOWUP RENAL CONSULTATION LOCATION: Room 368, bed A. REQUESTING PHYSICIAN: Dr. Spencer Gomez. REASON FOR FOLLOWUP: For evaluation of hyponatremia. SUBJECTIVE: Mrs. Yang is about 87 years old, very pleasant elderly female with a past medical history significant for arthritis, diverticulitis, gastritis, hypertension, hyperlipidemia, osteoporosis, chronic kidney disease, history of UTI, status post pacemaker who was admitted after the patient was brought in by environmental coordinator for evaluation of lethargy, confusion and decreased p.o. intake, cough associated yellow sputum for the last 2 weeks associated with multiple vomiting. The patient was initially treated for UTI prior to the admission without significant improvement. The patient is feeling slightly better, less cough, but still coughing. No chest pain, no palpitation. No fever, but less cough. No edema of the legs. No urinary symptoms. PHYSICAL EXAMINATION: VITAL SIGNS: As follows; blood pressure 160/67, pulse 60, respiration 20, temperature 98.2, saturation 97%, height 5 feet 3 inches and weight is 140 pounds. GENERAL: Celia is 87 years elderly female, moderately built, moderately nourished, not in distress. HEENT: Pupils normal, reactive to light and accommodation. Conjunctivae pink. Sclerae anicteric. Tongue is moist. Trachea is midline. LUNGS: Symmetric on both sides. Bilateral breath sounds present. No crackles. CVS: [place] at the fifth intercostal space, midclavicular line. S1 and S2 audible. No murmur or gallop. ABDOMEN: Normal in appearance, soft, tympanic. No guarding. No hepatosplenomegaly. SANITATION SUPERVISOR: The patient is alert, awake, oriented x3. Nonfocal neuro examination. Cranial nerves II through XII grossly intact. Sensory and motor system is within normal limits. EXTREMITIES: No cyanosis, no clubbing, no edema. CURRENT MEDICATIONS: As follows; Ambien 5 mg at bedtime, metoprolol 50 mg p.o. b.i.d., Lovenox 40 mg subcu daily, Norvasc 5 mg daily, NovoLog for sliding scale, Pepcid 20 mg p.o. daily, Plavix 75 mg daily, IV fluids normal saline at 60 mL/hour, Zithromax 500 mg p.o. daily and Zofran 4 mg IV q. 4 hours p.r.n. LABORATORY DATA: Blood culture x2 negative day 3 and urine culture is negative as of 03/11/2017. Chest x-ray as of 03/11/2017, initial one, no significant interval change noted since the previous examination. No significant pleural effusion identified, no pneumothorax, upper end some small bibasilar atelectasis. Ultrasound of the abdomen as of 03/12/2017, impression, limited study due to large body habitus and bowel gas, pancreas is not visualized on this exam, liver is increased echotexture rule out fatty infiltration ; however, other infiltrate or hepatocellular disease process not excluded, kidneys are also somewhat echogenic, which could be secondary to large body habitus, our correlation with renal function test recommended to exclude underlying mild medical renal disease. Repeat chest x-ray report is pending as of 03/14/2017. ASSESSMENT: In summary, Mrs. Yang is 87 years elderly female with a history of hypertension, osteoporosis, status post urinary tract infection, pneumonia and diverticulitis, was admitted with cough and shortness of breath, cough associated with yellow sputum and also vomiting and decreased p.o. intake and low serum sodium. 1. Hyponatremia most likely secondary to hypotonic hypovolemic hyponatremia secondary to decreased p.o. intake. 2. Rule out acute bronchitis, rule out pneumonia. 3. Hypertension. PLAN: Continue IV fluids. Continue Zithromax and repeat BMP in a.m. We encouraged p.o. intake and salt in the diet. We will follow with you. Thank you for allowing me to participate in your patient's care. Nicki Ha MD
--- NOTE | 2017-03-15 19:36 | CP.PCM.PN ---
Subjective - Date & Time of Evaluation Date of Evaluation: 03/15/17 Time of Evaluation: 19:33 - Subjective Subjective: Patient alert, oriented, but still weak with poor foods intake. CXR: mild venous congestion, but the patient has no complaint of SOB. Na+: 128 K+:3.4. K -Dur ordered by Dr Ha today. Objective - Vital Signs/Intake and Output Vital Signs (last 24 hours): Temp Pulse Resp BP Pulse Ox 98.2 F 64 20 149/70 98 03/15/17 16:00 03/15/17 16:00 03/15/17 16:00 03/15/17 16:00 03/15/17 16:00 Intake and Output: 03/15/17 03/16/17 18:59 06:59 Intake Total 1080 Balance 1080 - Medications Medications: Current Medications Amlodipine Besylate (Norvasc) 5 mg PO DAILY [facility] Last Admin: 03/15/17 09:21 Dose: 5 mg Azithromycin (Zithromax) 500 mg PO DAILY [facility] Last Admin: 03/15/17 09:23 Dose: 500 mg Clopidogrel Bisulfate (Plavix) 75 mg PO DAILY [facility] Last Admin: 03/15/17 09:22 Dose: 75 mg Enoxaparin Sodium (Lovenox) 40 mg SC DAILY [facility] Last Admin: 03/15/17 09:19 Dose: 40 mg Famotidine (Pepcid) 20 mg PO DAILY [facility] Last Admin: 03/15/17 09:22 Dose: 20 mg Sodium Chloride (Sodium Chloride 0.9%) 1,000 mls @ 80 mls/hr IV .[id number] [facility] Insulin Aspart (Novolog) 0 unit SC ACHS [facility] PRN Reason: Protocol Last Admin: 03/15/17 17:21 Dose: 2 unit Metoprolol Tartrate (Lopressor) 50 mg PO BID [facility] Last Admin: 03/15/17 17:20 Dose: 50 mg Ondansetron HCl (Zofran Inj) 4 mg IVP Q4H PRN PRN Reason: Nausea/Vomiting Zolpidem Tartrate (Ambien) 5 mg PO HS [facility] Last Admin: 03/14/17 21:24 Dose: 5 mg - Labs Labs: 03/15/17 07:27 03/15/17 07:27 PT 12.0 SECONDS (9.7-12.2) 03/11/17 12:40 INR 1.1 03/11/17 12:40 APTT 29 SECONDS (21-34) 03/11/17 12:40 - Constitutional Appears: No Acute Distress, Chronically Ill - Head Exam Head Exam: NORMAL INSPECTION - Eye Exam Eye Exam: Normal appearance - ENT Exam ENT Exam: Normal Exam - Neck Exam Neck Exam: Normal Inspection - Respiratory Exam Additional comments: Few rhonchi bibasilarly. - Cardiovascular Exam Cardiovascular Exam: REGULAR RHYTHM - GI/Abdominal Exam GI & Abdominal Exam: Soft, Normal Bowel Sounds - Rectal Exam Rectal Exam: Deferred - Extremities Exam Extremities Exam: Normal Inspection - Back Exam Back Exam: NORMAL INSPECTION - Neurological Exam Neurological Exam: Alert, Awake, Oriented x3 - Psychiatric Exam Psychiatric exam: Anxious - Skin Skin Exam: Dry, Intact, Normal Color, Warm Assessment and Plan (1) Hyponatremia Status: Acute (2) Hypokalemia Status: Acute (3) Acute bronchitis Status: Acute (4) Acute pancreatitis Status: Acute
[2017-03-16] MEDS: (Novolog) Insulin Aspart, Recombinant 100 u/ml 10 ml vial SC SCH ×5 (07:48→21:43)
--- NOTE | 2017-03-16 08:38 | PN ---
DATE: 03/15/2017 LOCATION: Room 368, bed A. REQUESTED BY: Dr. Spencer Gomez. REASON FOR FOLLOWUP: Hyponatremia, for further evaluation. SUBJECTIVE: Mrs. Yang is an 87 years old very pleasant elderly female with a history of arthritis, diverticulitis, gastritis, hypertension, hyperlipidemia, osteoporosis, history of acute encephalitis, UTI, who was admitted with chief complaints of lethargy, confusion and decreased p.o. intake, cough with yellow sputum for 2 weeks prior to the admission. The patient was found to have hyponatremia and dehydration being treated with IV hydration. The patient is feeling slightly better, increasing p.o. intake now. Denies any chest pain or palpitation. Denies any fever. Less cough today. PHYSICAL EXAMINATION: VITAL SIGNS: This morning as follows; blood pressure 148/81, pulse 62, respirations 20, temperature 98.3, saturation 98%. Height 5 feet 3 inches and weight is 140 pounds. GENERAL: Mrs. Yang is an 87 years old elderly female, moderately built, moderately nourished, not in acute distress. HEENT: Pupils normal, reactive to light and accommodation. Conjunctivae pink. Sclerae anicteric. Tongue is moist and trachea is midline. LUNGS: Symmetric on both sides. Bilateral breath sounds present. No crackles. CVS: [place] at the fifth intercostal space, midclavicular line. S1 and S2 audible. No murmur or gallop. ABDOMEN: Normal in appearance, soft, tympanic. No guarding, no rigidity. No hepatosplenomegaly. EXCAVATOR BACKHOE OPERATOR: The patient is alert, awake and oriented x3, hard in hearing. Cranial nerve cranial nerves II through XII grossly intact except hard in hearing. Sensory and motor system is within normal limits. EXTREMITIES: No cyanosis, no clubbing, no edema. CURRENT MEDICATIONS: As follows; Ambien 5 mg at bedtime, metoprolol 50 mg p.o. b.i.d., Lovenox 40 mg subcu daily, Norvasc 5 mg daily, famotidine 20 mg p.o. daily, Plavix 75 mg daily, IV fluids normal saline increased to 80 mL/hour this morning, Zithromax 500 mg p.o. daily and Zofran 4 mg IV q. 4 hours p.r.n. LABORATORY DATA: As of 03/15/2017; WBC 6.8, hemoglobin is 12, hematocrit is 33.7 and platelets 162. Sodium 128, potassium is 3.4, chloride 92, CO2 30, BUN 9, creatinine 0.6, glucose 110, calcium 8.4, lipase is 379. The other laboratory data, blood culture x2 negative day 4 and urine culture is negative from 03/11/2017. The chest x-ray as of 03/14/2017, impression; mild venous congestion and right paratracheal prominence, tortuous ectatic aorta, calcification at the aortic knob left-sided pacemaker and cardiomegaly. ASSESSMENT: In summary, Mrs. Yang is an 87 years old elderly female with a history of arthritis, diverticulosis, gastritis and hypertension, status post pacemaker who was admitted with cough, shortness of breath, decreased p.o. intake being treated with IV antibiotics, Zithromax now and IV fluids. 1. Hyponatremia most likely secondary to decreased p.o. intake, hypotonic hypovolemic hyponatremia. Increase IV fluids to normal saline at 80 mL/hour, encouraged p.o. intake and repeat BMP in a.m. Continue Zithromax p.o. 2. Hypertension. 3. Acute bronchitis, consider PT evaluation. We will follow with you. 4. Hypokalemia. We will give K-dur 40 mEq p.o. x1 dose. Repeat BMP and magnesium in a.m. Thank you for allowing me to participate in your patient's care. Nicki Ha MD
[2017-03-16 09:08] LABS: BLOOD UREA NITROGEN 9 mg/dL (7-17); CALCIUM 8.9 mg/dl (8.6-10.4); GFR AFRICAN-AMERICAN > 60; GFR NON-AFRICAN AMERICAN > 60; MAGNESIUM 1.8 mg/dL (1.6-2.3)
[2017-03-16] MEDS: Enoxaparin 40 mg Syringe SC SCH (09:29)
--- NOTE | 2017-03-16 10:45 | CP.PCM.PN ---
Subjective - Date & Time of Evaluation Date of Evaluation: 03/16/17 Time of Evaluation: 10:45 - Subjective Subjective: pt is seen and examined, follow up consult is dictated #[id number] d/c ivf check urine lytes, osm tsh, cortisol, uric acid Objective - Vital Signs/Intake and Output Vital Signs (last 24 hours): Temp Pulse Resp BP Pulse Ox 98.5 F 66 20 160/70 H 97 03/16/17 07:41 03/16/17 07:41 03/16/17 07:41 03/16/17 07:41 03/16/17 07:41 Intake and Output: 03/16/17 03/16/17 06:59 18:59 Intake Total 1580 Balance 1580 - Medications Medications: Current Medications Amlodipine Besylate (Norvasc) 5 mg PO DAILY [facility] Last Admin: 03/16/17 09:29 Dose: 5 mg Azithromycin (Zithromax) 500 mg PO [facility]ILY [facility] Last Admin: 03/16/17 09:30 Dose: 500 mg Clopidogrel Bisulfate (Plavix) 75 mg PO DAILY [facility] Last Admin: 03/16/17 09:30 Dose: 75 mg Enoxaparin Sodium (Lovenox) 40 mg SC DAILY [facility] Last Admin: 03/16/17 09:29 Dose: 40 mg Famotidine (Pepcid) 20 mg PO DAILY [facility] Last Admin: 03/16/17 09:29 Dose: 20 mg Sodium Chloride (Sodium Chloride 0.9%) 1,000 mls @ 80 mls/hr IV .[id number] [facility] Insulin Aspart (Novolog) 0 unit SC ACHS [facility] PRN Reason: Protocol Last Admin: 03/16/17 07:48 Dose: Not Given Metoprolol Tartrate (Lopressor) 50 mg PO BID [facility] Last Admin: 03/16/17 09:29 Dose: 50 mg Ondansetron HCl (Zofran Inj) 4 mg IVP Q4H PRN PRN Reason: Nausea/Vomiting Zolpidem Tartrate (Ambien) 5 mg PO HS [facility] Last Admin: 03/15/17 21:43 Dose: 5 mg - Labs Labs: 03/15/17 07:27 03/16/17 07:50 PT 12.0 SECONDS (9.7-12.2) 03/11/17 12:40 INR 1.1 03/11/17 12:40 APTT 29 SECONDS (21-34) 03/11/17 12:40
--- NOTE | 2017-03-16 13:48 | CP.PCM.PN ---
Subjective - Date & Time of Evaluation Date of Evaluation: 03/16/17 Time of Evaluation: 13:46 - Subjective Subjective: Patient still weak, but her appetite is improving. Afebrile, in no respiratory difficulty, denies any abdominal pain. For TCU placement. Objective - Vital Signs/Intake and Output Vital Signs (last 24 hours): Temp Pulse Resp BP Pulse Ox 98.5 F 66 20 160/70 H 97 03/16/17 07:41 03/16/17 07:41 03/16/17 07:41 03/16/17 07:41 03/16/17 07:41 Intake and Output: 03/16/17 03/16/17 06:59 18:59 Intake Total 1580 Balance 1580 - Medications Medications: Current Medications Amlodipine Besylate (Norvasc) 5 mg PO DAILY [facility] Last Admin: 03/16/17 09:29 Dose: 5 mg Azithromycin (Zithromax) 500 mg PO DAILY [facility] Last Admin: 03/16/17 09:30 Dose: 500 mg Clopidogrel Bisulfate (Plavix) 75 mg PO DAILY [facility] Last Admin: 03/16/17 09:30 Dose: 75 mg Enoxaparin Sodium (Lovenox) 40 mg SC DAILY [facility] Last Admin: 03/16/17 09:29 Dose: 40 mg Famotidine (Pepcid) 20 mg PO DAILY [facility] Last Admin: 03/16/17 09:29 Dose: 20 mg Insulin Aspart (Novolog) 0 unit SC [facility] PRN Reason: Protocol Last Admin: 03/16/17 07:48 Dose: Not Given Metoprolol Tartrate (Lopressor) 50 mg PO BID [facility] Last Admin: 03/16/17 09:29 Dose: 50 mg Ondansetron HCl (Zofran Inj) 4 mg IVP Q4H PRN PRN Reason: Nausea/Vomiting Zolpidem Tartrate (Ambien) 5 mg PO HS [facility] Last Admin: 03/15/17 21:43 Dose: 5 mg - Labs Labs: 03/15/17 07:27 03/16/17 07:50 PT 12.0 SECONDS (9.7-12.2) 03/11/17 12:40 INR 1.1 03/11/17 12:40 APTT 29 SECONDS (21-34) 03/11/17 12:40 - Constitutional Appears: No Acute Distress, Chronically Ill - Head Exam Head Exam: NORMAL INSPECTION - Eye Exam Eye Exam: Normal appearance - ENT Exam ENT Exam: Normal Exam - Neck Exam Neck Exam: Normal Inspection - Respiratory Exam Respiratory Exam: Rhonchi Additional comments: Rhonchi at both bases. - Cardiovascular Exam Cardiovascular Exam: REGULAR RHYTHM, Murmur - GI/Abdominal Exam GI & Abdominal Exam: Soft, Normal Bowel Sounds - Rectal Exam Rectal Exam: Deferred - Extremities Exam Extremities Exam: Normal Inspection - Back Exam Back Exam: NORMAL INSPECTION - Neurological Exam Neurological Exam: Alert, Awake, Oriented x3 - Psychiatric Exam Psychiatric exam: Anxious - Skin Skin Exam: Dry, Intact, Normal Color, Warm Assessment and Plan (1) Hyponatremia Status: Acute (2) Hypokalemia Status: Acute (3) Acute bronchitis Status: Acute (4) Acute pancreatitis Status: Acute
--- NOTE | 2017-03-16 22:36 | CARD ---
APPROVED REPORT EKG Measurement Heart [id number] <Conclusion> Atrial-sensed ventricular-paced rhythm with prolonged AV conduction Abnormal ECG
[2017-03-16 23:12] LABS: OSMOLALITY,URINE 323 mosm/kg (300-1000)
--- NOTE | 2017-03-17 03:49 | PN ---
DATE: 03/16/2017 FOLLOWUP RENAL CONSULTATION LOCATION: The patient is located in room 386, bed A. REQUESTED BY: Spencer Merchant MD REASON FOR RENAL FOLLOWUP: Hyponatremia, for further evaluation. SUBJECTIVE: Mrs. 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 intake and found to have low serum sodium. The patient is being treated with IV hydration and the patient is feeling better, less cough. No shortness of breath. No chest pain. No palpitation. No fever. OBJECTIVE: VITAL SIGNS: As follows, blood pressure this morning 160/70, pulse 66, respirations 20, temperature 98.5, and saturation 97%. Height 5 feet 3 inches and weight is 140 pounds. GENERAL: Mrs. Yang is an 87-year-old elderly female, moderately built, moderately nourished, not in distress. HEENT: Pupils are normal, reactive to light and accommodation. Conjunctivae pink. Sclerae anicteric. Tongue is moist. Trachea is midline. LUNGS: Symmetric on both sides. Bilateral breath sounds present. Clear on auscultation. CVS: [place] at the fifth intercostal space, midclavicular area. S1 and S2 audible. No murmur or gallop. ABDOMEN: Normal in appearance, soft, tympanitic. No guarding. No rigidity. No hepatosplenomegaly. COPRA PROCESSOR: The patient is alert, awake, oriented x3. Nonfocal neuro examination. Cranial nerves II through XII grossly intact. Sensory and motor system is within normal limits. EXTREMITIES: No cyanosis, no clubbing, no edema. CURRENT MEDICATIONS: Include as follows, Ambien 5 mg p.o. at bedtime, metoprolol 50 mg p.o. b.i.d., Lovenox 40 mg subcu daily, Norvasc 5 mg daily, NovoLog, famotidine 20 mg p.o. daily, Plavix 75 mg p.o. daily, Zithromax 500 mg p.o. daily, and Zofran 4 mg IV q.4 hours. LABORATORY DATA: Include as follows, as of 03/16/2017, sodium 126, potassium 4.3, chloride 91, CO2 of 28, BUN 9, creatinine 0.6, glucose 121, calcium is 8.9, magnesium 1.8. IMPRESSION: In summary, Mrs. 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 intake and cough with yellow sputum, being treated for acute bronchitis possible and low serum sodium. 1. Hyponatremia, most likely secondary to intravascular depletion. Serum sodium is still on the low side, rule out syndrome of inappropriate antidiuretic hormone secretion, rule out hypothyroidism. 2. Hypertension. 3. Acute bronchitis. PLAN: Continue antibiotics as per Dr. Merchant and we will check urine lytes, osmolality, serum osmolality, TSH and serum cortisol level and uric acid level and also we will discontinue IV fluids. We will continue to monitor BMP in a.m. We will follow with you. Thank you for allowing me to participate in your patient's care. Nicki Ha MD
[2017-03-17] MEDS: (Novolog) Insulin Aspart, Recombinant 100 u/ml 10 ml vial SC SCH ×4 (07:30→21:15)
[2017-03-17 07:46] LABS: BLOOD UREA NITROGEN 10 mg/dL (7-17); GFR AFRICAN-AMERICAN > 60; GFR NON-AFRICAN AMERICAN > 60
[2017-03-17] MEDS: Enoxaparin 40 mg Syringe SC SCH (09:43)
--- NOTE | 2017-03-17 13:31 | CP.PCM.PN ---
Subjective - Date & Time of Evaluation Date of Evaluation: 03/17/17 Time of Evaluation: 13:28 - Subjective Subjective: Patient weak, with a mild dry cough, with a slightly improved appetite, but afebrile, in no respiratory distress. Objective - Vital Signs/Intake and Output Vital Signs (last 24 hours): Temp Pulse Resp BP Pulse Ox 98.5 F 77 20 160/77 H 96 03/17/17 07:28 03/17/17 07:28 03/17/17 07:28 03/17/17 07:28 03/17/17 07:28 Intake and Output: 03/17/17 03/17/17 06:59 18:59 Intake Total 640 200 Balance 640 200 - Medications Medications: Current Medications Amlodipine Besylate (Norvasc) 5 mg PO DAILY [facility] Last Admin: 03/17/17 09:41 Dose: 5 mg Clopidogrel Bisulfate (Plavix) 75 mg PO DAILY [facility] Last Admin: 03/17/17 09:42 Dose: 75 mg Enoxaparin Sodium (Lovenox) 40 mg SC DAILY [facility] Last Admin: 03/17/17 09:43 Dose: 40 mg Famotidine (Pepcid) 20 mg PO DAILY [facility] Last Admin: 03/17/17 09:41 Dose: 20 mg Insulin Aspart (Novolog) 0 unit SC [facility] PRN Reason: Protocol Last Admin: 03/17/17 11:30 Dose: 1 unit Metoprolol Tartrate (Lopressor) 50 mg PO BID [facility] Last Admin: 03/17/17 09:41 Dose: 50 mg Ondansetron HCl (Zofran Inj) 4 mg IVP Q4H PRN PRN Reason: Nausea/Vomiting Zolpidem Tartrate (Ambien) 5 mg PO HS [facility] Last Admin: 03/16/17 21:40 Dose: 5 mg - Labs Labs: 03/15/17 07:27 03/17/17 07:17 PT 12.0 SECONDS (9.7-12.2) 03/11/17 12:40 INR 1.1 03/11/17 12:40 APTT 29 SECONDS (21-34) 03/11/17 12:40 - Constitutional Appears: Chronically Ill - Head Exam Head Exam: NORMAL INSPECTION - Eye Exam Eye Exam: Normal appearance - ENT Exam ENT Exam: Normal Exam - Neck Exam Neck Exam: Normal Inspection - Respiratory Exam Respiratory Exam: Rhonchi Additional comments: Few bibasilar rhonchi. - Cardiovascular Exam Cardiovascular Exam: REGULAR RHYTHM, Murmur - GI/Abdominal Exam GI & Abdominal Exam: Soft, Normal Bowel Sounds - Rectal Exam Rectal Exam: Deferred - Extremities Exam Extremities Exam: Normal Inspection - Back Exam Back Exam: NORMAL INSPECTION - Neurological Exam Neurological Exam: Alert, Awake, Oriented x3 - Psychiatric Exam Psychiatric exam: Anxious - Skin Skin Exam: Dry, Intact, Normal Color, Warm Assessment and Plan (1) Hyponatremia Status: Resolved (2) Hypokalemia Status: Resolved (3) Acute bronchitis Status: Resolved (4) Acute pancreatitis Status: Resolved
[2017-03-17 16:04] VITALS: BP 153/69; PULSE 63; TEMP 98; O2SAT 98
--- NOTE | 2017-03-17 16:46 | CP.PCM.PN ---
Subjective - Date & Time of Evaluation Date of Evaluation: 03/17/17 Time of Evaluation: 16:46 - Subjective Subjective: pt is seen and examined, follow up consult is dictated #[id number] Objective - Vital Signs/Intake and Output Vital Signs (last 24 hours): Temp Pulse Resp BP Pulse Ox 98 F 63 20 153/69 H 98 03/17/17 16:02 03/17/17 16:02 03/17/17 16:02 03/17/17 16:02 03/17/17 16:02 Intake and Output: 03/17/17 03/17/17 06:59 18:59 Intake Total 640 200 Balance 640 200 - Medications Medications: Current Medications Amlodipine Besylate (Norvasc) 5 mg PO DAILY [facility] Last Admin: 03/17/17 09:41 Dose: 5 mg Clopidogrel Bisulfate (Plavix) 75 mg PO DAILY [facility] Last Admin: 03/17/17 09:42 Dose: 75 mg Enoxaparin Sodium (Lovenox) 40 mg SC DAILY [facility] Last Admin: 03/17/17 09:43 Dose: 40 mg Famotidine (Pepcid) 20 mg PO DAILY [facility] Last Admin: 03/17/17 09:41 Dose: 20 mg Insulin Aspart (Novolog) 0 unit SC [facility] PRN Reason: Protocol Last Admin: 03/17/17 11:30 Dose: 1 unit Metoprolol Tartrate (Lopressor) 50 mg PO BID [facility] Last Admin: 03/17/17 09:41 Dose: 50 mg Ondansetron HCl (Zofran Inj) 4 mg IVP Q4H PRN PRN Reason: Nausea/Vomiting Zolpidem Tartrate (Ambien) 5 mg PO HS [facility] Last Admin: 03/16/17 21:40 Dose: 5 mg - Labs Labs: 03/15/17 07:27 03/17/17 07:17 PT 12.0 SECONDS (9.7-12.2) 03/11/17 12:40 INR 1.1 03/11/17 12:40 APTT 29 SECONDS (21-34) 03/11/17 12:40
--- NOTE | 2017-03-17 22:49 | PN ---
DATE: FOLLOWUP RENAL CONSULTATION LOCATION: The patient is located in room 368, bed A. REQUESTED BY: Spencer Merchant MD REASON FOR FOLLOWUP: Hyponatremia, for further evaluation. SUBJECTIVE: Mrs. Yang is an 87-year-old elderly female with a past medical history significant for hypertension, arthritis, diverticulosis, and gastritis, history of acute renal failure secondary to acute interstitial nephritis, hyperlipidemia, and status post pacemaker who was admitted initially on 03/11/2017 with chief complaints of lethargy, confusion and decreased p.o. intake, cough with yellow sputum and elevated amylase and lipase and also hyponatremia. The patient is feeling much better, not in distress. Denies any abdominal pain. Denies any nausea, vomiting or diarrhea. Less cough and tolerating p.o. intake. PHYSICAL EXAMINATION: VITAL SIGNS: This morning as follows; blood pressure 152/69, pulse 63, respirations 20, temperature 98, saturation 98%. Height 5 feet 3 inches and weight is 140 pounds. GENERAL: Mrs. Yang is an 87-year-old elderly female, moderately built, moderately nourished, not in acute distress. HEENT: Pupils normal, reactive to light and accommodation. Conjunctivae pink. Sclerae anicteric. Tongue is moist and trachea is midline. LUNGS: Symmetric on both sides. Bilateral breath sounds present. Clear on auscultation. CVS: Adams at the fifth intercostal space, midclavicular line. S1 and S2 audible. No murmur or gallop. ABDOMEN: Normal in appearance, soft, tympanic. No guarding, no rigidity. No hepatosplenomegaly. STOGY ROLLER: The patient is alert, awake and oriented x3. Nonfocal neuro examination. Cranial nerves II through XII are grossly intact. Sensory and motor system is within normal limits. EXTREMITIES: No cyanosis, no clubbing, no edema. CURRENT MEDICATIONS: Include as follows: Ambien 5 mg at bedtime, metoprolol 50 mg p.o. b.i.d., Lovenox 40 mg subcutaneously daily, Norvasc 5 mg daily, NovoLog for sliding scale p.r.n., Pepcid 20 mg p.o. daily, Plavix 75 mg daily, and Zofran 4 mg IV q.4 hours p.r.n. LABORATORY DATA: Her laboratory data included as follows as of 03/17/2017: Sodium 128, potassium 3.9, chloride 91, CO2 of 31, BUN 10, creatinine 0.6, glucose 98, calcium is 9.0, and serum cortisol level is 12.9. Urine osmolality is 323 and urine sodium is 113 as of 03/16/2017. Serum uric acid level is 2.4 as of 03/12/2017 and serum urine osmolality as of 03/12/2017 is 267. ASSESSMENT AND PLAN: In summary, Mrs. Yang is an 87-year-old elderly female with hypertension, arthritis, gastritis, and hyperlipidemia, was admitted with cough with yellow sputum, decreased p.o. intake, lethargy, generalized weakness, and low serum sodium. 1. Hyponatremia most likely secondary to hypotonic hypovolemic hyponatremia, cannot rule out syndrome of inappropriate antidiuretic hormone secretion or combination. Serum sodium initially improved but now again serum sodium is steady about 126 to 128. 2. Hypertension. Blood pressure is stable. Continue with current medication, metoprolol. 3. Cannot rule out mild pancreatitis. 4. Acute bronchitis, status post intravenous antibiotics and p.o. Zithromax. The patient is stable from the renal standpoint and encouraged p.o. intake, high protein supplement, and monitor BNP (B-type natriuretic peptide) daily. If needed we will add sodium chloride tablets 1 g p.o. b.i.d. and restrict fluids to 1 L per day. We will follow with you. Thank you for allowing me to participate in your patient's care. Nicki Ha MD
== END 2017-03-17 23:30 | disposition home health service (06) | DRG 202 ==
LOC: C.ER 11:35 → C.9E 14:59 → C.3T 15:58
PROVIDERS: ADMIT Internal Medicine Cardiovascular Disease; ATTEND Internal Medicine Cardiovascular Disease
DX: J20.9 Acute bronchitis, unspecified (principal); K85.90 Acute pancreatitis without necrosis or infection, unspecified; E11.649 Type 2 diabetes mellitus with hypoglycemia without coma; E87.1 Hypo-osmolality and hyponatremia; N39.0 Urinary tract infection, site not specified; J98.11 Atelectasis; E86.0 Dehydration; E87.6 Hypokalemia; E78.5 Hyperlipidemia, unspecified; M19.90 Unspecified osteoarthritis, unspecified site; I12.9 Hypertensive chronic kidney disease with stage 1 through stage 4 chronic kidney disease, or unspecified chronic kidney disease; N18.9 Chronic kidney disease, unspecified; Z79.84 Long term (current) use of oral hypoglycemic drugs

== ENCOUNTER 2017-05-10 16:40 | Emergency (ER) | payer MEDICARE ==
[2017-05-10 16:40] VITALS: BMI 23.8
[2017-05-10 17:42] LABS: BASO # 0.1 K/uL (0.0-0.2); EOS # 0.2 K/uL (0.0-0.7); EOS % 3.5 % (0.0-4.0); HEMOGLOBIN 12.7 g/dL (11.0-16.0); LYMPH # 2.2 K/uL (1.0-4.3); LYMPH % 31.7 % (20.0-40.0); MEAN CORPUSCULAR HEMOGLOBIN 32.3 pg (27.0-31.0); MEAN CORPUSCULAR HGB CONC 33.9 g/dL (33.0-37.0); MEAN PLATELET VOLUME 8.9 fL (7.2-11.7); MONO # 0.9 K/uL (0.0-0.8); MONO % 12.9 % (0.0-10.0); NEUT # 3.5 K/uL (1.8-7.0); NEUT % 50.9 % (50.0-75.0); RBC 3.93 Mil/uL (3.80-5.20); RED CELL DISTRIBUTION WIDTH 14.3 % (11.5-14.5); WHITE BLOOD COUNT 6.8 K/uL (4.8-10.8)
[2017-05-10 17:45] LABS: MEAN CELL VOLUME 95.4 fL (81.0-99.0)
[2017-05-10 17:47] LABS: INR 1.1; PROTHROMBIN TIME 12.2 SECONDS (9.7-12.2)
--- NOTE | 2017-05-10 17:49 | RAD ---
PROCEDURE: CHEST RADIOGRAPH, 1 VIEW HISTORY: SOB COMPARISON: 03/14/2017 FINDINGS: LUNGS: Clear. PLEURA: No pneumothorax or pleural fluid seen. CARDIOVASCULAR: Normal heart size. Permanent pacemaker. No congestive change. OSSEOUS STRUCTURES: No significant abnormalities. VISUALIZED UPPER ABDOMEN: Normal. OTHER FINDINGS: None. IMPRESSION: No active disease.
[2017-05-10 17:52] LABS: ALB/GLOB RATIO 1.1 (1.0-2.1); ALBUMIN 3.7 g/dL (3.5-5.0); ALT/SGPT 31 U/L (9-52); AST/SGOT 42 U/L (14-36); BLOOD UREA NITROGEN 20 mg/dL (7-17); GFR AFRICAN-AMERICAN > 60; GFR NON-AFRICAN AMERICAN 52
[2017-05-10 18:02] LABS: B-TYPE NATRIURETIC PEPTIDE 166 pg/mL (0-900)
--- NOTE | 2017-05-10 18:02 | C.PDOC ---
History Of Present Illness 87 year old female presents to the ED for evaluation of a lacy rash to her bilateral lower extremities after being referred by her Emergency Room Physician, Dr. Guardado. Patient states she is currently taking Ciproflaxin for her bilateral toe ulcers , which are well-healing. She denies fever, chills. Time Seen by Provider: 05/10/17 17:13 Chief Complaint (Nursing): Lower Extremity Problem/Injury History Per: Patient History/Exam Limitations: no limitations Onset/Duration Of Symptoms: Hrs Current Symptoms Are (Timing): Still Present Additional History Per: Patient Past Medical History Reviewed: Historical Data, Nursing Documentation, Vital Signs Vital Signs: Last Vital Signs Temp 98.5 F 05/10/17 18:52 Pulse 77 05/10/17 18:52 Resp 20 05/10/17 18:52 BP 173/64 H 05/10/17 18:52 Pulse Ox 97 05/10/17 21:01 - Medical History PMH: Arthritis, Bronchitis, CHF, Diverticulitis, Gastritis, HTN, Hypercholesterolemia, Osteoporosis, Pneumonia (2011), Chronic Kidney Disease ( 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, but back to normal) Denies: HIV Surgical History: Pacemaker - [facility] Procedures BED MOBILITY TREATMENT (03/18/17) DRESSING TECHNIQUES TREATMENT USING ASSIST EQUIPMENT (03/18/17) EXERCISE TREATMENT OF MUSCULOSK WHOLE USING ASSIST EQUIPMENT (02/06/15) EXERCISE TRMT MUSCULOSK LOW BACK/LE W ASSIST EQUIP (03/18/17) GAIT TRAINING/AMBULAT TREATMENT USING ASSIST EQUIPMENT (03/18/17) GROOMING/PERSONAL HYGIENE TREATMENT USING ASSIST EQUIPMENT (03/18/17) HOME MANAGEMENT TREATMENT USING ASSIST EQUIPMENT (08/26/15) INITIAL INSERT TRANS LEADS INTO A[employer]IUM [employer] VENTRICLE (10/22/13) INITIAL INSERTION OF DUAL-CHAMBER DEVICE (10/22/13) THERAPEUTIC EXERCISE TREATMENT OF MUSCULOSK LOW BACK/LE (08/26/15) TRANSFER TRAINING TREATMENT USING ASSIST EQUIPMENT (03/18/17) Family History: States: Unknown Family Hx - Social History Hx Tobacco Use: No Hx Alcohol Use: No Hx Substance Use: No - Immunization History Hx Tetanus Toxoid Vaccination: No Hx Influenza Vaccination: Yes Hx Pneumococcal Vaccination: Yes Review Of Systems Constitutional: Negative for: Fever, Chills Skin: Positive for: Rash Physical Exam - Physical Exam Appears: Non-toxic, No Acute Distress Skin: Warm, Dry, Rash (scant, lacy rash to bilateral lower extremities ) Head: Atraumatic, Normacephalic Eye(s): bilateral: Normal Inspection Oral Mucosa: Moist Neck: Supple Chest: Symmetrical, No Deformity, No Tenderness Cardiovascular: Rhythm Regular, No Murmur Respiratory: Normal Breath Sounds, No Rales, No Rhonchi, No Wheezing Extremity: Normal ROM, Capillary Refill (less than 2 seconds ), Other (mild, symmetrical edema to b/l lower extremities ) Neurological/Psych: Oriented x3, Normal Speech, Normal Cognition ED Course And Treatment - Laboratory Results Result Diagrams: 05/10/17 17:33 05/10/17 17:33 Lab Interpretation: Normal ECG: Interpreted By Me, Viewed By Me ECG Rhythm: AV Paced Rate From EC O2 Sat by Pulse Oximetry: 97 (on RA ) Pulse Ox Interpretation: Normal - Other Rad CXR X-Ray: Interpreted by Me, Viewed By Me, Read By Radiologist Interpretation: IMPRESSION: No active disease. Progress Note: Bloodwork, UA, CXR, EKG ordered and reviewed. Case discussed with Dr. Guardado at 1900, who recommends antibiotics and outpatient follow up. Medical Decision Making Medical Decision Making: superficial lacy rash of b/l lower legs ? lotion or mild drug rash NOT allergic rxn/cellulitis/CHF/stasis dermatitis discussed with Dr. Guardado- Pod's- will follow in office next week, sooner PRN Disposition Doctor Will See Patient In The: Office Counseled Patient/Family Regarding: Studies Performed, Diagnosis - Disposition Referrals: Rancho Guardado DPM [Staff Provider] - Disposition: HOME/ ROUTINE Disposition Time: 18:41 Condition: GOOD Additional Instructions: continue same antibiotic and follow-up with Dr. Guardado- Emergency Room Physician- as need Scheduled for visit next week. Instructions: Diabetic Foot Ulcer (DC), Skin Rash Forms: [employer] (Indonesian) - Clinical Impression Clinical Impression: Rash, skin - Scribe Statement The provider has reviewed the documentation as recorded by the Scribe (Swathi Hollins) Provider Attestation: All medical record entries made by the Scribe were at my direction and personally dictated by me. I have reviewed the chart and agree that the record accurately reflects my personal performance of the history, physical exam, medical decision making, and the department course for this patient. I have also personally directed, reviewed, and agree with the discharge instructions and disposition.
[2017-05-10 18:55] VITALS: BP 173/64; PULSE 77; RESP 20; TEMP 98.5
[2017-05-10 20:56] VITALS: O2SAT 97
== END 2017-05-10 19:04 | disposition home or self-care (01) ==
LOC: C.ER 16:40
DX: R21 Rash and other nonspecific skin eruption (principal)

== ENCOUNTER 2017-11-10 15:34 | Inpatient (IN) | payer MEDICARE ==
[2017-11-10 15:35] VITALS: BMI 23.8
[2017-11-10 16:31] LABS: BASO # 0.1 K/uL (0.0-0.2); EOS # 0.1 K/uL (0.0-0.7); EOS % 0.6 % (0.0-4.0); LYMPH # 3.1 K/uL (1.0-4.3); LYMPH % 33.3 % (20.0-40.0); MEAN CELL VOLUME 94.1 fL (81.0-99.0); MEAN CORPUSCULAR HEMOGLOBIN 32.7 pg (27.0-31.0); MEAN CORPUSCULAR HGB CONC 34.7 g/dL (33.0-37.0); MEAN PLATELET VOLUME 8.3 fL (7.2-11.7); MONO # 1.2 K/uL (0.0-0.8); MONO % 12.9 % (0.0-10.0); NEUT # 4.8 K/uL (1.8-7.0); NEUT % 52.2 % (50.0-75.0); NRBC % 0.2 % (0.0-2.0); RBC 4.29 Mil/uL (3.80-5.20); RED CELL DISTRIBUTION WIDTH 13.2 % (11.5-14.5); WHITE BLOOD COUNT 9.2 K/uL (4.8-10.8)
--- NOTE | 2017-11-10 16:38 | RAD ---
Date of service: 11/10/2017 HISTORY: Sepsis Patient COMPARISON: 05/10/2017. FINDINGS: LUNGS: No active pulmonary disease. PLEURA: No significant pleural effusion identified, no pneumothorax apparent. CARDIOVASCULAR: No radiographic findings to suggest acute or significant cardiovascular disease. Position/ configuration of pacemaker device: Satisfactory. OSSEOUS STRUCTURES: No significant abnormalities. VISUALIZED UPPER ABDOMEN: Normal. OTHER FINDINGS: None. IMPRESSION: No active disease. No significant interval change compared to the prior examination(s).
[2017-11-10 16:44] LABS: VENOUS BLOOD GAS BASE EXCESS 0.3 mmol/L (0.0-2.0); VENOUS BLOOD GAS PCO2 42 mmHg (40-60); VENOUS BLOOD GAS PO2 25 mm/Hg (30-55); VENOUS BLOOD PH 7.39 (7.32-7.43)
[2017-11-10 16:45] LABS: BLOOD UREA NITROGEN 14 mg/dL (7-17); CALCIUM 8.9 mg/dl (8.6-10.4); GFR NON-AFRICAN AMERICAN > 60
[2017-11-10 16:46] LABS: ALB/GLOB RATIO 1.4 (1.0-2.1); ALBUMIN 4.7 g/dL (3.5-5.0); ALT/SGPT 27 U/L (9-52); AST/SGOT 131 U/L (14-36)
--- NOTE | 2017-11-10 16:54 | C.PDOC ---
History Of Present Illness 87 y/o female, w/PMhx of diabetes, HTN, CHF, and pacemaker, presents to the ER complaining of generalized weakness which has been present for the past 1 week. Daughter of patient notes that she has been feeling weak and she has trouble getting up from bed.Daughter of patient states that she had flu and shingle vaccinations 1 week ago. Patient had laryngitis 5 days ago. Her PMD, prescribed her Z-Pack and she completed the course. Daughter notes that she also has urinary frequency since last night. Denies having headache, fever, chills, CP, SOB, nausea, vomiting,abdominal pain, dysuria, and hematuria. Time Seen by Provider: 11/10/17 15:52 Chief Complaint (Nursing): Weakness/Neurological Deficit History Per: Patient, Family (daughter) Onset/Duration Of Symptoms: Days Current Symptoms Are (Timing): Still Present Severity: Moderate Past Medical History Reviewed: Historical Data, Nursing Documentation, Vital Signs Vital Signs: Last Vital Signs Temp 98.5 F 11/10/17 15:40 Pulse 59 L 11/10/17 15:40 Resp 19 11/10/17 15:40 BP 171/77 H 11/10/17 15:40 Pulse Ox 96 11/10/17 15:40 - Medical History PMH: Arthritis, Bronchitis, CHF, Diverticulitis, Gastritis, HTN, Hypercholesterolemia, Osteoporosis, Pneumonia, Chronic Kidney Disease ([facility], [facility]) Denies: HIV Surgical History: Pacemaker - [facility] Procedures BED MOBILITY TREATMENT (03/18/17) DRESSING TECHNIQUES TREATMENT USING ASSIST EQUIPMENT (03/18/17) EXERCISE TREATMENT OF MUSCULOSK WHOLE USING ASSIST EQUIPMENT (02/06/15) EXERCISE TRMT MUSCULOSK LOW BACK/LE W ASSIST EQUIP (03/18/17) GAIT TRAINING/AMBULAT TREATMENT USING ASSIST EQUIPMENT (03/18/17) GROOMING/PERSONAL HYGIENE TREATMENT USING ASSIST EQUIPMENT (03/18/17) HOME MANAGEMENT TREATMENT USING ASSIST EQUIPMENT (08/26/15) INITIAL INSERT TRANS LEADS INTO [employer] VENTRICLE (10/22/13) INITIAL INSERTION OF DUAL-CHAMBER DEVICE (10/22/13) THERAPEUTIC EXERCISE TREATMENT OF MUSCULOSK LOW BACK/LE (08/26/15) TRANSFER TRAINING TREATMENT USING ASSIST EQUIPMENT (03/18/17) Family History: States: No Known Family Hx - Social History Hx Tobacco Use: No Hx Alcohol Use: No Hx Substance Use: No - Immunization History Hx Tetanus Toxoid Vaccination: No Hx Influenza Vaccination: Yes Hx Pneumococcal Vaccination: Yes Review Of Systems Except As Marked, All Systems Reviewed And Found Negative. Constitutional: Positive for: Weakness. Negative for: Fever, Chills Cardiovascular: Negative for: Chest Pain Respiratory: Negative for: Shortness of Breath Gastrointestinal: Negative for: Abdominal Pain Neurological: Negative for: Headache, Dizziness Physical Exam - Physical Exam Appears: Non-toxic, No Acute Distress Skin: Normal Color, Warm, Dry, Other (bruises to left collarbone) Head: Normacephalic Eye(s): bilateral: Normal Inspection Nose: Normal Oral Mucosa: Moist Neck: Supple Chest: Symmetrical Cardiovascular: Rhythm Regular Respiratory: Normal Breath Sounds, No Rales, No Rhonchi, No Wheezing Gastrointestinal/Abdominal: Soft, No Tenderness, Distention (mild distention), No Guarding, No Rebound Extremity: Normal ROM, Other (no pitting edema) Neurological/Psych: Oriented x3, Normal Speech ED Course And Treatment - Laboratory Results Result Diagrams: 11/10/17 16:25 11/10/17 16:25 O2 Sat by Pulse Oximetry: 96 (RA) Pulse Ox Interpretation: Normal - Radiology CXR: Interpreted by Me, Viewed By Me CXR Interpretation: Yes: No Acute Disease Medical Decision Making Medical Decision Making: Plan: --Labs --UA --ECG --CXR Spoke with Dr. Merchant, agrees with admission, requests renal consult. Disposition Discussed With : Spencer Merchant Counseled Patient/Family Regarding: Studies Performed, Diagnosis, Need For Followup, Rx Given - Disposition Disposition: HOSPITALIZED Disposition Time: 18:10 Condition: GUARDED Instructions: Weakness (ED) Forms: [employer] (Angolan) - Clinical Impression Clinical Impression: Weakness, Hyponatremia - Scribe Statement The provider has reviewed the documentation as recorded by the Donald Bower Provider Attestation: All medical record entries made by the Haseebibe were at my direction and personally dictated by me. I have reviewed the chart and agree that the record accurately reflects my personal performance of the history, physical exam, medical decision making, and the department course for this patient. I have also personally directed, reviewed, and agree with the discharge instructions and disposition. Decision To Admit - InPatient: Physician Admission Certification: I certify that this patient requires 2 or more midnights of care for the following reason:: hyponatremia, hyperk - . Admitting Physician: Spencer Merchant Patient Diagnosis: Weakness, Hyponatremia
[2017-11-10 17:00] LABS: B-TYPE NATRIURETIC PEPTIDE 703 pg/mL (0-900)
[2017-11-10] MEDS ORDERED: Sodium Chloride 0.9% 500 ML IV ONE ×2 (17:10→17:47)
[2017-11-10 17:13] LABS: URINE BACTERIA RARE (<OCC); URINE BILIRUBIN NEGATIVE (NEGATIVE); URINE BLOOD NEGATIVE (NEGATIVE); URINE CLARITY Clear (Clear); URINE COLOR Yellow (YELLOW); URINE GLUCOSE (UA) NORMAL (Normal); URINE LEUKOCYTE ESTERASE NEG Leu/uL (Negative); URINE PROTEIN NEGATIVE (NEGATIVE); URINE UROBILINOGEN NORMAL mg/dL (0.2-1.0)
[2017-11-10 19:38] LABS: VENOUS BLOOD GAS BASE EXCESS -0.5 mmol/L (0.0-2.0); VENOUS BLOOD GAS PCO2 39 mmHg (40-60); VENOUS BLOOD GAS PO2 30 mm/Hg (30-55)
[2017-11-10 20:04] VITALS: RESP 20
[2017-11-10] MEDS: Sodium Chloride 0.9% 1,000 ML IV SCH (21:47)
[2017-11-10] MEDS: Oxycodone/Acetaminophen 5/325 mg Tab PO SCH (21:48)
[2017-11-10] MEDS: (Novolog) Insulin Aspart, Recombinant 100 u/ml 10 ml vial SC SCH (21:48)
[2017-11-10] MEDS: GlipiZIDE 2.5 mg Tab PO SCH (21:48)
--- NOTE | 2017-11-10 22:54 | CP.PCM.HP ---
History of Present Illness - History of Present Illness History of Present Illness: 87 years old Female was brought to the ED at [facility] because of generalized weakness and poor appetite for the past few days. She recently had a cold and was treated with Zithromax. She denies any fever, any cough, any burning micturation, any diarrhea, nausea, vomiting, abdominal pain. In the ED, she was found to have a serum Na+: 121, K+: 5.7 BUN: 14 Creatinine : 0.7. She is known to have a HPTN, a NIDDM, a s/p Permanent pacemaker. She was given 500 ml NS in the ED. Present on Admission - Present on Admission Any Indicators Present on Admission: No Review of Systems - Constitutional Constitutional: Anorexia, Fatigue, Weakness Past Patient History - Infectious Disease Hx of Infectious Diseases: None - Tetanus Immunizations Tetanus Immunization: Unknown - Past Medical History & Family History Past Medical History?: Yes - Past Social History Smoking Status: Never Smoked Alcohol: None Drugs: Denies Home Situation {Lives}: Alone Domestic Violence: Negative - CARDIAC Hx Congestive Heart Failure: Yes Hx Hypercholesterolemia: Yes Hx Hypertension: Yes Hx Pacemaker: Yes - PULMONARY Hx Bronchitis: Yes Hx Pneumonia: Yes - NEUROLOGICAL Hx Paralysis: No - HEENT Hx HEENT Problems: No - RENAL Hx Chronic Kidney Disease: Yes (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, but back to normal) - ENDOCRINE/METABOLIC Hx Endocrine Disorders: Yes Hx Diabetes Mellitus Type 2: Yes - HEMATOLOGICAL/ONCOLOGICAL Hx Human Immunodeficiency Virus (HIV): No - INTEGUMENTARY Hx Dermatological Problems: Yes 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 SCALP SURGERY FOR MALIGNANCY - MUSCULOSKELETAL/RHEUMATOLOGICAL Hx Arthritis: Yes Hx Osteoporosis: Yes - GASTROINTESTINAL Hx Diverticulitis: Yes Hx Gastritis: Yes - GENITOURINARY/GYNECOLOGICAL Hx Genitourinary Disorders: Yes Hx Urinary Tract Infection: Yes - PSYCHIATRIC Hx Substance Use: No - SURGICAL HISTORY Hx Surgeries: Yes (Cataract extraction. 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.) Hx Cataract Extraction: Yes Hx Hysterectomy: Yes (PARTIAL) Other/Comment: BACK STIMULATOR, PACEMAKER - ANESTHESIA Hx Anesthesia: Yes Hx Anesthesia Reactions: No Hx Malignant Hyperthermia: No Meds Allergies/Adverse Reactions: Allergies Allergy/AdvReac Type Severity Reaction Status Date / Time ciprofloxacin [From Cipro] Allergy Severe ITCHING Verified 11/10/17 15:46 ciprofloxacin HCl Allergy Severe ITCHING Verified 11/10/17 15:46 [From Cipro] aspirin Allergy Verified 11/10/17 15:46 Physical Exam - Constitutional Appears: Well, No Acute Distress - Head Exam Head Exam: NORMAL INSPECTION - Eye Exam Eye Exam: Normal appearance Pupil Exam: NORMAL ACCOMODATION - ENT Exam ENT Exam: Normal Exam - Neck Exam Neck exam: Positive for: Normal Inspection - Respiratory Exam Respiratory Exam: Clear to Auscultation Bilateral, NORMAL BREATHING PATTERN - Cardiovascular Exam Cardiovascular Exam: REGULAR RHYTHM, Systolic Murmur - GI/Abdominal Exam GI & Abdominal Exam: Normal Bowel Sounds, Soft - Rectal Exam Rectal Exam: Deferred - Extremities Exam Extremities exam: Positive for: normal inspection - Back Exam Back exam: NORMAL INSPECTION - Neurological Exam Neurological exam: Alert, Normal Gait, Oriented x3 - Psychiatric Exam Psychiatric exam: Anxious - Skin Skin Exam: Dry, Intact Results - Vital Signs Recent Vital Signs: Last Vital Signs Temp 97.9 F 11/10/17 20:03 Pulse 62 11/10/17 20:03 Resp 20 11/10/17 20:03 BP 154/55 H 11/10/17 20:03 Pulse Ox 94 L 11/10/17 20:03 - Labs Result Diagrams: 11/10/17 16:25 11/10/17 16:25 Labs: Laboratory Results - last 24 hr 11/10/17 11/10/17 11/10/17 15:55 16:25 16:25 WBC 9.2 RBC 4.29 Hgb 14.0 Hct 40.4 MCV 94.1 MCH 32.7 H MCHC 34.7 RDW 13.2 Plt Count 231 MPV 8.3 Neut % (Auto) 52.2 Lymph % (Auto) 33.3 Dawson % (Auto) 12.9 H Eos % (Auto) 0.6 Baso % (Auto) 1.0 Neut # (Auto) 4.8 Lymph # (Auto) 3.1 Dawson # (Auto) 1.2 H Eos # (Auto) 0.1 Baso # (Auto) 0.1 pO2 VBG pH VBG pCO2 VBG HCO3 VBG Total CO2 VBG O2 Sat (Calc) VBG Base Excess VBG Potassium Glucose Lactate Sodium 121 L Potassium 5.6 H Chloride 87 L Carbon Dioxide 22 Anion Gap 19 BUN 14 Creatinine 0.7 Est GFR ( Amer) > 60 Est GFR (Non-Af Amer) > 60 POC Glucose (mg/dL) 125 H Random Glucose 95 Calcium 8.9 Total Bilirubin 1.9 H AST 131 H D ALT 27 Alkaline Phosphatase 85 Troponin I 0.0180 NT-Pro-B Natriuret Pep 703 Total Protein 8.1 Albumin 4.7 Globulin 3.4 Albumin/Globulin Ratio 1.4 Venous Blood Potassium Urine Color Urine Clarity Urine pH Ur Specific [place] Urine Protein Urine Glucose (UA) Urine Ketones Urine Blood Urine Nitrate Urine Bilirubin Urine Urobilinogen Ur Leukocyte Esterase Urine WBC (Auto) Urine Bacteria Ur Random Sodium 11/10/17 11/10/17 11/10/17 16:41 16:50 19:35 WBC RBC Hgb Hct MCV MCH MCHC RDW Plt Count MPV Neut % (Auto) Lymph % (Auto) Dawson % (Auto) Eos % (Auto) Baso % (Auto) Neut # (Auto) Lymph # (Auto) Dawson # (Auto) Eos # (Auto) Baso # (Auto) pO2 25 L 30 VBG pH 7.39 7.40 VBG pCO2 42 39 L VBG HCO3 23.7 23.5 VBG Total CO2 26.7 25.4 VBG O2 Sat (Calc) 55.1 67.5 H VBG Base Excess 0.3 -0.5 L VBG Potassium 3.7 3.5 L Glucose 89 89 Lactate 1.5 0.9 Sodium 121.0 L 122.0 L Potassium Chloride 90.0 L 93.0 L Carbon Dioxide Anion Gap BUN Creatinine Est GFR ( Amer) Est GFR (Non-Af Amer) POC Glucose (mg/dL) Random Glucose Calcium Total Bilirubin AST ALT Alkaline Phosphatase Troponin I NT-Pro-B Natriuret Pep Total Protein Albumin Globulin Albumin/Globulin Ratio Venous Blood Potassium 3.7 3.5 L Urine Color Yellow Urine Clarity Clear Urine pH 7.0 Ur Specific [place] 1.005 Urine Protein Negative Urine Glucose (UA) Normal Urine Ketones Negative Urine Blood Negative Urine Nitrate Negative Urine Bilirubin Negative Urine Urobilinogen Normal Ur Leukocyte Esterase Neg Urine WBC (Auto) 1 Urine Bacteria Rare Ur Random Sodium 11/10/17 11/10/17 20:08 21:16 WBC RBC Hgb Hct MCV MCH MCHC RDW Plt Count MPV Neut % (Auto) Lymph % (Auto) Dawson % (Auto) Eos % (Auto) Baso % (Auto) Neut # (Auto) Lymph # (Auto) Dawson # (Auto) Eos # (Auto) Baso # (Auto) pO2 VBG pH VBG pCO2 VBG HCO3 VBG Total CO2 VBG O2 Sat (Calc) VBG Base Excess VBG Potassium Glucose Lactate Sodium Potassium Chloride Carbon Dioxide Anion Gap BUN Creatinine Est GFR ( Amer) Est GFR (Non-Af Amer) POC Glucose (mg/dL) 143 H Random Glucose Calcium Total Bilirubin AST ALT Alkaline Phosphatase Troponin I NT-Pro-B Natriuret Pep Total Protein Albumin Globulin Albumin/Globulin Ratio Venous Blood Potassium Urine Color Urine Clarity Urine pH Ur Specific [place] Urine Protein Urine Glucose (UA) Urine Ketones Urine Blood Urine Nitrate Urine Bilirubin Urine Urobilinogen Ur Leukocyte Esterase Urine WBC (Auto) Urine Bacteria Ur Random Sodium 35 Assessment & Plan (1) Hyponatremia Assessment and Plan: Probably from dehydration. Will start IV NS. Check serum Cortisol, spot urine Na+, thyroid profile. Status: Acute (2) Hypertension Status: Chronic (3) Non-insulin dependent type 2 diabetes mellitus Status: Chronic Decision To Admit - Pt Status Changed To: Hospital Disposition Of: Observation - . Bed Request Type: Telemetry Admitting Physician: Spencer Merchant
[2017-11-11] MEDS: (Novolog) Insulin Aspart, Recombinant 100 u/ml 10 ml vial SC SCH ×4 (07:31→21:10)
[2017-11-11 09:22] LABS: FREE T4 1.7 ng/dL (0.78-2.19)
[2017-11-11 09:31] LABS: ALB/GLOB RATIO 1.2 (1.0-2.1); ALBUMIN 3.2 g/dL (3.5-5.0); ALT/SGPT 40 U/L (9-52); AST/SGOT 39 U/L (14-36); BLOOD UREA NITROGEN 10 mg/dL (7-17); CALCIUM 8.2 mg/dl (8.6-10.4); GFR NON-AFRICAN AMERICAN > 60
[2017-11-11] MEDS: GlipiZIDE 2.5 mg Tab PO SCH ×2 (09:35→21:45)
[2017-11-11] MEDS ORDERED: Potassium Chloride 20 mEq ER Tab PO ONE (12:15)
[2017-11-11 19:28] LABS: CREATININE, RANDOM URINE 41.5 mg/dL
[2017-11-11] MEDS: Sodium Chloride 0.9% 1,000 ML IV SCH (21:11)
[2017-11-11] MEDS: Oxycodone/Acetaminophen 5/325 mg Tab PO SCH (21:46)
--- NOTE | 2017-11-11 22:09 | CP.PCM.PN ---
Subjective - Date & Time of Evaluation Date of Evaluation: 11/11/17 Time of Evaluation: 13:30 - Subjective Subjective: Patient feels better. Afebrile. Na+: 125 K+: 3.2 . Objective - Vital Signs/Intake and Output Vital Signs (last 24 hours): Temp Pulse Resp BP Pulse Ox 98.0 F 72 20 121/60 96 11/11/17 15:00 11/11/17 21:00 11/11/17 15:00 11/11/17 15:00 11/11/17 15:00 Intake and Output: 11/11/17 11/12/17 18:59 06:59 Intake Total 320 Balance 320 - Medications Medications: Current Medications Amlodipine Besylate (Norvasc) 5 mg PO DAILY [facility] Last Admin: 11/11/17 09:34 Dose: 5 mg Clopidogrel Bisulfate (Plavix) 75 mg PO DAILY [facility] Last Admin: 11/11/17 09:34 Dose: 75 mg Docusate Sodium (Colace) 100 mg PO BID PRN PRN Reason: Constipation Famotidine (Pepcid) 20 mg PO DAILY [facility] Last Admin: 11/11/17 09:34 Dose: 20 mg Folic Acid (Folic Acid) 1 mg PO DAILY [facility] Last Admin: 11/11/17 09:34 Dose: 1 mg Glipizide (Glucotrol) 2.5 mg PO AMHS [facility] Last Admin: 11/11/17 21:45 Dose: 2.5 mg Heparin Sodium (Porcine) (Heparin) 5,000 units SC Q12 [facility] Last Admin: 11/11/17 21:46 Dose: 5,000 units Sodium Chloride (Sodium Chloride 0.9%) 1,000 mls @ 40 mls/hr IV .Q24H [facility] Last Admin: 11/11/17 21:11 Dose: 40 mls/hr Insulin Aspart (Novolog) 0 unit SC ACHS [facility]; Protocol Last Admin: 11/11/17 21:10 Dose: Not Given Loratadine (Claritin) 10 mg PO DAILY [facility] Last Admin: 11/11/17 09:34 Dose: 10 mg Metoprolol Tartrate (Lopressor) 50 mg PO BID [facility] Last Admin: 11/11/17 17:32 Dose: 50 mg Oxycodone/Acetaminophen (Percocet 5/325 Mg Tab) 1 tab PO [facility] Stop: 11/13/17 22:01 Last Admin: 11/11/17 21:46 Dose: 1 tab Zolpidem Tartrate (Ambien) 5 mg PO HS [facility] Last Admin: 11/11/17 21:46 Dose: 5 mg - Labs Labs: 11/10/17 16:25 11/11/17 08:12 - Constitutional Appears: Well, No Acute Distress - Head Exam Head Exam: NORMAL INSPECTION - Eye Exam Eye Exam: Normal appearance - ENT Exam ENT Exam: Normal Exam - Neck Exam Neck Exam: Normal Inspection - Respiratory Exam Respiratory Exam: Clear to Ausculation Bilateral, NORMAL BREATHING PATTERN - Cardiovascular Exam Cardiovascular Exam: REGULAR RHYTHM, Murmur - GI/Abdominal Exam GI & Abdominal Exam: Soft, Normal Bowel Sounds - Rectal Exam Rectal Exam: Deferred - Extremities Exam Extremities Exam: Normal Inspection - Back Exam Back Exam: NORMAL INSPECTION - Neurological Exam Neurological Exam: Alert, Awake, Oriented x3 - Psychiatric Exam Psychiatric exam: Anxious - Skin Skin Exam: Dry, Intact, Warm Assessment and Plan (1) Hyponatremia Assessment & Plan: To continue IV hydration with NS. Status: Acute (2) Hypertension Status: Chronic (3) Non-insulin dependent type 2 diabetes mellitus Status: Chronic
[2017-11-12] MEDS: (Novolog) Insulin Aspart, Recombinant 100 u/ml 10 ml vial SC SCH ×2 (07:19→11:40)
[2017-11-12 08:28] LABS: BLOOD UREA NITROGEN 11 mg/dL (7-17); CALCIUM 8.8 mg/dl (8.6-10.4); GFR NON-AFRICAN AMERICAN > 60
[2017-11-12] MEDS: GlipiZIDE 2.5 mg Tab PO SCH (10:01)
[2017-11-12 12:25] VITALS: PULSE 60
--- NOTE | 2017-11-12 15:16 | CP.PCM.PN ---
Subjective - Date & Time of Evaluation Date of Evaluation: 11/12/17 Time of Evaluation: 15:35 - Subjective Subjective: 87 yo WF with pmh/o htn, dm, s/p pacemaker was admitted with recent h/o URI s/p rx with zithromax , severe weakness, decreased po intake, low sodium, started on ivf, feeling better today, pt's daughter at bed side Objective - Vital Signs/Intake and Output Vital Signs (last 24 hours): Temp Pulse Resp BP Pulse Ox 97.6 F 60 20 142/63 100 11/12/17 07:56 11/12/17 12:24 11/12/17 07:56 11/12/17 09:59 11/12/17 07:56 Intake and Output: 11/12/17 11/12/17 06:59 18:59 Intake Total 320 680 Balance 320 680 - Medications Medications: Current Medications Amlodipine Besylate (Norvasc) 5 mg PO DAILY [facility] Last Admin: 11/12/17 10:00 Dose: 5 mg Clopidogrel Bisulfate (Plavix) 75 mg PO DAILY [facility] Last Admin: 11/12/17 10:00 Dose: 75 mg Docusate Sodium (Colace) 100 mg PO BID PRN PRN Reason: Constipation Famotidine (Pepcid) 20 mg PO DAILY [facility] Last Admin: 11/12/17 10:00 Dose: 20 mg Folic Acid (Folic Acid) 1 mg PO DAILY [facility] Last Admin: 11/12/17 10:01 Dose: 1 mg Glipizide (Glucotrol) 2.5 mg PO AMHS [facility] Last Admin: 11/12/17 10:01 Dose: 2.5 mg Heparin Sodium (Porcine) (Heparin) 5,000 units SC Q12 [facility] Last Admin: 11/12/17 10:01 Dose: 5,000 units Insulin Aspart (Novolog) 0 unit SC ACHS [facility]; Protocol Last Admin: 11/12/17 11:40 Dose: 1 unit Loratadine (Claritin) 10 mg PO DAILY [facility] Last Admin: 11/12/17 10:00 Dose: 10 mg Metoprolol Tartrate (Lopressor) 50 mg PO BID [facility] Last Admin: 11/12/17 10:00 Dose: 50 mg Oxycodone/Acetaminophen (Percocet 5/325 Mg Tab) 1 tab PO [facility] Stop: 11/13/17 22:01 Last Admin: 11/11/17 21:46 Dose: 1 tab Zolpidem Tartrate (Ambien) 5 mg PO HS [facility] Last Admin: 11/11/17 21:46 Dose: 5 mg - Labs Labs: 11/10/17 16:25 11/12/17 07:46 - Constitutional Appears: Well, Non-toxic, No Acute Distress - Head Exam Head Exam: ATRAUMATIC, NORMAL INSPECTION, NORMOCEPHALIC - Eye Exam Eye Exam: EOMI, Normal appearance, PERRL Pupil Exam: NORMAL ACCOMODATION - ENT Exam ENT Exam: Mucous Membranes Moist - Neck Exam Neck Exam: Full ROM, Normal Inspection - Respiratory Exam Respiratory Exam: Clear to Ausculation Bilateral, NORMAL BREATHING PATTERN - Cardiovascular Exam Cardiovascular Exam: REGULAR RHYTHM, +S1, +S2 - GI/Abdominal Exam GI & Abdominal Exam: Soft, Normal Bowel Sounds - Rectal Exam Rectal Exam: NORMAL INSPECTION - Extremities Exam Extremities Exam: Normal Inspection - Neurological Exam Neurological Exam: Alert, Awake, CN II-XII Intact, Normal Gait, Oriented x3 - Psychiatric Exam Psychiatric exam: Normal Affect - Skin Skin Exam: Normal Color Assessment and Plan - Assessment and Plan (Free Text) Assessment: 87 yo WF with hypertension, dm, s/p pacemaker, s/p uri with weakness, decreased po intake 1. Hyponatremia sec to hypotonic hypovolemic hyponatremia 2. htn 3. DM na is improving, encourage po intake c/w current anti htn meds sugara re under control
[2017-11-12 16:08] VITALS: BP 150/68; TEMP 98.3; O2SAT 95
[2017-11-12] MEDS ORDERED: Pneumococcal 23-Valent Vaccine IM ONE (17:00)
--- NOTE | 2017-11-12 17:00 | CP.PCM.PN ---
Subjective - Date & Time of Evaluation Date of Evaluation: 11/12/17 Time of Evaluation: 16:56 - Subjective Subjective: Patient has no complaint. BP: 150/80 Afebrile. serum Na+: 130 K+: 4.1 Objective - Vital Signs/Intake and Output Vital Signs (last 24 hours): Temp Pulse Resp BP Pulse Ox 98.3 F 60 20 150/68 95 11/12/17 16:07 11/12/17 16:07 11/12/17 16:07 11/12/17 16:07 11/12/17 16:07 Intake and Output: 11/12/17 11/12/17 06:59 18:59 Intake Total 320 680 Balance 320 680 - Medications Medications: Current Medications Amlodipine Besylate (Norvasc) 5 mg PO DAILY [facility] Last Admin: 11/12/17 10:00 Dose: 5 mg Clopidogrel Bisulfate (Plavix) 75 mg PO DAILY [facility] Last Admin: 11/12/17 10:00 Dose: 75 mg Docusate Sodium (Colace) 100 mg PO BID PRN PRN Reason: Constipation Famotidine (Pepcid) 20 mg PO DAILY [facility] Last Admin: 11/12/17 10:00 Dose: 20 mg Folic Acid (Folic Acid) 1 mg PO DAILY [facility] Last Admin: 11/12/17 10:01 Dose: 1 mg Glipizide (Glucotrol) 2.5 mg PO AMHS [facility] Last Admin: 11/12/17 10:01 Dose: 2.5 mg Heparin Sodium (Porcine) (Heparin) 5,000 units SC Q12 [facility] Last Admin: 11/12/17 10:01 Dose: 5,000 units Insulin Aspart (Novolog) 0 unit SC [facility]; Protocol Last Admin: 11/12/17 11:40 Dose: 1 unit Loratadine (Claritin) 10 mg PO DAILY [facility] Last Admin: 11/12/17 10:00 Dose: 10 mg Metoprolol Tartrate (Lopressor) 50 mg PO BID [facility] Last Admin: 11/12/17 10:00 Dose: 50 mg Oxycodone/Acetaminophen (Percocet 5/325 Mg Tab) 1 tab PO [facility] Stop: 11/13/17 22:01 Last Admin: 11/11/17 21:46 Dose: 1 tab Pneumococcal Polyvalent Vaccine (Pneumovax 23 Vaccine) 0.5 ml IM .ONCE ONE Stop: 11/12/17 17:01 Zolpidem Tartrate (Ambien) 5 mg PO HS [facility] Last Admin: 11/11/17 21:46 Dose: 5 mg - Labs Labs: 11/10/17 16:25 11/12/17 07:46 - Constitutional Appears: Well, No Acute Distress - Head Exam Head Exam: NORMAL INSPECTION - Eye Exam Eye Exam: Normal appearance - ENT Exam ENT Exam: Normal Exam - Neck Exam Neck Exam: Normal Inspection - Respiratory Exam Respiratory Exam: Clear to Ausculation Bilateral, NORMAL BREATHING PATTERN - Cardiovascular Exam Cardiovascular Exam: REGULAR RHYTHM, Murmur - GI/Abdominal Exam GI & Abdominal Exam: Soft, Normal Bowel Sounds - Rectal Exam Rectal Exam: Deferred - Exam Exam: NORMAL INSPECTION - Extremities Exam Extremities Exam: Normal Inspection - Back Exam Back Exam: NORMAL INSPECTION - Neurological Exam Neurological Exam: Alert, Awake, Normal Gait, Oriented x3 - Psychiatric Exam Psychiatric exam: Anxious - Skin Skin Exam: Dry, Intact, Normal Color Assessment and Plan (1) Hyponatremia Assessment & Plan: Today serum Na+: 130 K+ : 4.1. Will discharge home today. To continue same home meds. F/U with Dr Merchant and Dr Waters in 1-2 weeks. 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
--- NOTE | 2017-11-14 11:10 | CARD ---
APPROVED REPORT Date of service: 11/10/2017 EKG Measurement Heart [id number] <Conclusion> Atrial-sensed ventricular-paced rhythm with prolonged AV conduction Abnormal ECG
--- NOTE | 2017-11-14 21:49 | CP.PCM.CON ---
History of Present Illness - History of Present Illness History of Present Illness: pt was seen and examined on 11/11/2017 at 17 :10 pm, late entry 87 yo WH with pmh/o hypertension, dm, s/p pacemaker who was recently treated for uri by pmd with zithromax. now pt was admitted with cc/o generalized weakness, anorixia, decreased po intake. pt was found to have low serum na low k+, pt denies any cp, palpitation, nausea, vomitings, diarrhea, no abdominal pain, no urinary sx, no dysuria, frequency, lizzie aof legs renal consult is requested for evaluation of hyponatremia Review of Systems - Constitutional Constitutional: As Per HPI, Malaise, Weakness Additional comments: anorexia,decreased po intake for few days - EENT Eyes: As Per HPI Ears: As Per HPI Nose/Mouth/Throat: As Per HPI - Breasts Breasts: As Per HPI - Cardiovascular Cardiovascular: As Per HPI - Respiratory Respiratory: As Per HPI - Gastrointestinal Gastrointestinal: As Per HPI - Genitourinary Genitourinary: As Per HPI - Reproductive: Female Reproductive:Female: As Per HPI - Menstruation Menstruation: As Per HPI - Musculoskeletal Musculoskeletal: As Per HPI - Integumentary Integumentary: As Per HPI - Neurological Neurological: As Per HPI - Psychiatric Psychiatric: As Per HPI - Endocrine Endocrine: As Per HPI - Hematologic/Lymphatic Hematologic: As Per HPI Past Patient History - Infectious Disease Hx of Infectious Diseases: None - Tetanus Immunizations Tetanus Immunization: Unknown - Past Medical History & Family History Past Medical History?: Yes - Past Social History Smoking Status: Never Smoked Alcohol: None Drugs: Denies Home Situation {Lives}: Alone Domestic Violence: Negative - CARDIAC Hx Congestive Heart Failure: Yes Hx Hypercholesterolemia: Yes Hx Hypertension: Yes - PULMONARY Hx Bronchitis: Yes Hx Pneumonia: Yes - NEUROLOGICAL Hx Paralysis: No - HEENT Hx HEENT Problems: No - RENAL Hx Chronic Kidney Disease: Yes (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, but back to normal) - ENDOCRINE/METABOLIC Hx Diabetes Mellitus Type 2: Yes - HEMATOLOGICAL/ONCOLOGICAL Hx Human Immunodeficiency Virus (HIV): No - INTEGUMENTARY Hx Dermatological Problems: Yes 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 SCALP SURGERY FOR MALIGNANCY - MUSCULOSKELETAL/RHEUMATOLOGICAL Hx Arthritis: Yes - GASTROINTESTINAL Hx Diverticulitis: Yes Hx Gastritis: Yes - GENITOURINARY/GYNECOLOGICAL Hx Genitourinary Disorders: Yes Hx Urinary Tract Infection: Yes - PSYCHIATRIC Hx Substance Use: No - SURGICAL HISTORY Hx Surgeries: Yes (Cataract extraction. 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.) Hx Cataract Extraction: Yes Hx Hysterectomy: Yes (PARTIAL) Other/Comment: BACK STIMULATOR, PACEMAKER - ANESTHESIA Hx Anesthesia: Yes Hx Anesthesia Reactions: No Hx Malignant Hyperthermia: No Meds Allergies/Adverse Reactions: Allergies Allergy/AdvReac Type Severity Reaction Status Date / Time ciprofloxacin [From Cipro] Allergy Severe ITCHING Verified 11/10/17 15:46 ciprofloxacin HCl Allergy Severe ITCHING Verified 11/10/17 15:46 [From Cipro] aspirin Allergy Verified 11/10/17 15:46 Physical Exam - Head Exam Head Exam: ATRAUMATIC, NORMAL INSPECTION, NORMOCEPHALIC - Eye Exam Eye Exam: EOMI, Normal appearance - ENT Exam ENT Exam: Mucous Membranes Dry - Neck Exam Neck exam: Positive for: Full Rom, Normal Inspection - Respiratory Exam Respiratory Exam: Clear to Auscultation Bilateral, NORMAL BREATHING PATTERN - Cardiovascular Exam Cardiovascular Exam: REGULAR RHYTHM, +S1, +S2 - GI/Abdominal Exam GI & Abdominal Exam: Normal Bowel Sounds, Soft Additional comments: no HSM, non tender, no abdominal bruit - Rectal Exam Rectal Exam: Deferred - Neurological Exam Neurological exam: Alert, CN II-XII Intact, Normal Gait, Oriented x3, Reflexes Normal - Psychiatric Exam Psychiatric exam: Normal Affect, Normal Mood - Skin Skin Exam: Dry, Intact, Normal Color Results - Vital Signs Recent Vital Signs: v/s bp 1231/60, pr 60, rr20, temp 98.0f, ht5'2 inc, [id number] lbs, BMI 24.9 from 11/11/2017 15:00 Last Vital Signs Temp 98.3 F 11/12/17 16:07 Pulse 60 11/12/17 16:07 Resp 20 11/12/17 16:07 BP 150/68 11/12/17 16:07 Pulse Ox 95 11/12/17 16:07 - Labs Result Diagrams: 11/10/17 16:25 11/12/17 07:46 Labs: 11/11/2017: sodium 125, k3.3, cl93, co2:23, bun:10, s.cr:0.6, glu; 92, ca:8.2, tbili:0.5, ast:39, alt:40. alk.phos:75, tp:5.9, alb:3.2 Assessment & Plan - Assessment and Plan (Free Text) Assessment: 87 yo WF with pmh/o hypertension, dm, s/p pacemaker, s/p treatment for URI with zithromax was admitted with generalized weakness, anorexia, decreased po kintake, low serum na low k+ 1. Hyponatremia sec to hypotonic hypovolemic hyponatremia 2. Hypertension 3. DM 4. s/p pacemaker placement check urine lytes, osm, c r agree with gentle iv hydration, check BMP daily Plan: as above - Date & Time Date: 11/11/17 Time: 17:10
== END 2017-11-12 17:31 | disposition home or self-care (01) | DRG 641 ==
LOC: C.ER 15:34 → C.9E 18:12 → C.5S 19:46
PROVIDERS: ADMIT Internal Medicine Cardiovascular Disease; ATTEND Internal Medicine Cardiovascular Disease
DX: E87.1 Hypo-osmolality and hyponatremia (principal); I13.0 Hypertensive heart and chronic kidney disease with heart failure and stage 1 through stage 4 chronic kidney disease, or unspecified chronic kidney disease; E86.0 Dehydration; I50.9 Heart failure, unspecified; N18.9 Chronic kidney disease, unspecified; E11.22 Type 2 diabetes mellitus with diabetic chronic kidney disease; E78.00 Pure hypercholesterolemia, unspecified; Z95.0 Presence of cardiac pacemaker

== ENCOUNTER 2018-04-17 11:04 | Outpatient (CLI) | payer MEDICARE | END 2018-04-17 11:05 | disposition home or self-care (01) | LOC: C.DEXAIC 11:04 ==